=== PATIENT | female | born 1980 | race Caucasian/White ===

== ENCOUNTER → 2018-07-29 13:47 | Outpatient (CLI) | payer OTHER, SELFPAY ==
[2018-07-29 08:13] VITALS: BMI 24.9
[2018-07-31 11:38] LABS: HPV APTIMA, High Risk Negative (Negative)
== END ==
PROVIDERS: Family Provider Internal Medicine; PCP Internal Medicine; Referring Provider Nurse Practitioner Women's Health; Visit Provider Nurse Practitioner Women's Health
DX: Z12.4 Encounter for screening for malignant neoplasm of cervix (principal)
CPT/HCPCS: 87624; 88175; G0145

== ENCOUNTER → 2020-10-07 09:15 | Outpatient (CLI) | payer OTHER, SELFPAY ==
[2020-10-07 08:56] VITALS: BMI 24.9
[2020-10-07 15:06] LABS: NATERA MAILED SPECIMEN
== END ==
PROVIDERS: PCP Internal Medicine; Referring Provider Nurse Practitioner Women's Health; Visit Provider Nurse Practitioner Women's Health
DX: N94.9 Unspecified condition associated with female genital organs and menstrual cycle (principal); Z80.3 Family history of malignant neoplasm of breast
CPT/HCPCS: 36415; 87070; 87205

== ENCOUNTER → 2021-10-10 | Outpatient (CLI) | payer OTHER, SELFPAY ==
--- NOTE | 2021-10-10 08:51 | BI_ITS ---
MAMMOGRAPHY - BILATERAL SCREENING REASON FOR EXAM: Female, 41 years old. Routine annual screening examination. PERTINENT HISTORY: Non-contributory. TECHNIQUE: Digital bilateral breast brittaney (3D mammographic acquisition) in the CC and MLO projections. 2-D mediolateral oblique (MLO) and craniocaudad (CC) views of both breasts were obtained. CAD: Full Field Digital Mammography with Computer Added Detection was performed. COMPARISON: None. Baseline examination. FINDINGS: Breast Composition: The breasts are extremely dense, which lowers the sensitivity of mammography. There are no dominant masses or suspicious calcifications. No other significant abnormalities are identified. BI/SCRN MAMM (CAD)W/BRITTANEY BILAT IMPRESSION: Negative screening mammogram. Yearly followup mammogram recommended. (A) ASSESSMENT CATEGORY: BIRADS Category 1: Negative. A letter regarding these results will be sent to the patient by the facility within 30 days. Approximately 10% of breast cancers are not detected by mammography. A normal mammogram should not delay biopsy of a clinically suspicious abnormality. [id number] Electronically Signed: Nathan Vergara MD at 9:46 EDT ,
== END | disposition home or self-care (01) ==
LOC: OPBI 08:51
PROVIDERS: PCP Internal Medicine; Referring Provider Obstetrics & Gynecology; Visit Provider Obstetrics & Gynecology
DX: Z12.31 Encounter for screening mammogram for malignant neoplasm of breast (principal)
CPT/HCPCS: 77063; 77067

== ENCOUNTER → 2022-10-16 | Outpatient (CLI) | payer OTHER, SELFPAY ==
--- NOTE | 2022-10-16 15:23 | BI_ITS ---
MAMMOGRAPHY - BILATERAL SCREENING REASON FOR EXAM: Female, 42 years old. Routine annual screening examination. PERTINENT HISTORY: Non-contributory. TECHNIQUE: Digital bilateral breast brittaney (3D mammographic acquisition) in the CC and MLO projections. 2-D mediolateral oblique (MLO) and craniocaudad (CC) views of both breasts were obtained. CAD: Full Field Digital Mammography with Computer Added Detection was performed. COMPARISON: Comparison is made with prior study dated October 10, 2021. FINDINGS: Breast Composition: The breasts are extremely dense, which lowers the sensitivity of mammography. There are no dominant masses or suspicious calcifications. No other significant abnormalities are identified. There has been no significant change since the prior study. BI/SCRN MAMM (CAD)W/BRITTANEY BILAT IMPRESSION: Stable bilateral screening mammogram. Yearly follow-up mammogram recommended. (A) ASSESSMENT CATEGORY: BIRADS Category 1: Negative. A letter regarding these results will be sent to the patient by the facility within 30 days. Approximately 10% of breast cancers are not detected by mammography. A normal mammogram should not delay biopsy of a clinically suspicious abnormality. [id number] Electronically Signed: Nathan Vergara MD at 8:16 EDT ,
== END | disposition home or self-care (01) ==
LOC: OPBI 15:22
PROVIDERS: PCP Internal Medicine; Referring Provider Nurse Practitioner Women's Health; Visit Provider Nurse Practitioner Women's Health
DX: Z12.31 Encounter for screening mammogram for malignant neoplasm of breast (principal)
CPT/HCPCS: 77063; 77067

== ENCOUNTER → 2023-09-06 | Outpatient (CLI) | payer OTHER, SELFPAY ==
--- NOTE | 2023-09-06 14:26 | US_ITS ---
STUDY: ULTRASOUND BREAST - LEFT REASON FOR EXAM: Female, 43 years old. Palpable lump in the left axilla. TECHNIQUE: Axial and longitudinal images of the LEFT breast were performed with a high resolution ultrasound transducer. # OF IMAGES: 19 COMPARISON: Comparison is made with prior mammogram dated September 06, 2023. FINDINGS: LEFT Breast: The left axilla was examined with ultrasound. There is a 1.5 cm x 0.9 cm x 0.5 cm hypoechoic nodule with central fatty hilum suggestive of a small lymph node. US/Breast Limited Unilateral IMPRESSION: 1.5 cm x 0.9 cm x 0.5 cm benign-appearing lymph node in the left axilla. ASSESSMENT CATEGORY: BIRADS Category 2: Benign. A letter regarding these results will be sent to the patient by the facility within 30 days. Electronically Signed: Nathan Vergara MD at 13:29 EDT ,
--- NOTE | 2023-09-06 14:26 | BI_ITS ---
MAMMOGRAPHY - BILATERAL DIAGNOSTIC REASON FOR EXAM: Female, 43 years old. Patient felt a tiny left axillary lump. PERTINENT HISTORY: Non-contributory. TECHNIQUE: Digital bilateral breast velia (3D mammographic acquisition) in the CC and MLO projections. 2-D mediolateral oblique (MLO) and craniocaudad (CC) views of both breasts were obtained. CAD: Full Field Digital Mammography with Computer Added Detection was performed. COMPARISON: Comparison is made with prior study dated October 16, 2022 and October 10, 2021. FINDINGS: Breast Composition: The breasts are extremely dense, which lowers the sensitivity of mammography. There are no dominant masses or suspicious calcifications. No other significant abnormalities are identified. There has been no significant change since the prior study. BI/DIAG MAMM W/CAD, BILAT IMPRESSION: Stable bilateral diagnostic mammogram. With the patient''s history of a palpable lump in the left axilla, correlation with ultrasound is recommended. ASSESSMENT CATEGORY: BIRADS Category 0: Incomplete. Need additional imaging evaluation. A letter regarding these results will be sent to the patient by the facility within 30 days. Approximately 10% of breast cancers are not detected by mammography. A normal mammogram should not delay biopsy of a clinically suspicious abnormality. Electronically Signed: Nathan Vergara MD at 8:43 EDT ,
== END | disposition home or self-care (01) ==
PROVIDERS: PCP Internal Medicine; Visit Provider Nurse Practitioner Women's Health
DX: N63.32 Unspecified lump in axillary tail of the left breast (principal); Z80.3 Family history of malignant neoplasm of breast
CPT/HCPCS: 76642; 77062; 77066; G0279

== ENCOUNTER → 2023-11-12 | Outpatient (CLI) | payer OTHER, SELFPAY ==
[2023-11-14 14:10] LABS: HPV APTIMA, High Risk Negative (Negative)
== END | disposition home or self-care (01) ==
LOC: LABSPEC 11:55
PROVIDERS: PCP Internal Medicine; Referring Provider Nurse Practitioner Women's Health; Visit Provider Nurse Practitioner Women's Health
DX: Z12.4 Encounter for screening for malignant neoplasm of cervix (principal)
CPT/HCPCS: 87624; 88175; G0145

== ENCOUNTER → 2024-11-25 | Outpatient (CLI) | payer OTHER, SELFPAY ==
--- NOTE | 2024-11-25 12:45 | BI_ITS ---
EXAM: SCRN MAMM (CAD)W/BRITTANEY BILAT DATE: 11/25/2024 CLINICAL HISTORY: F, Age 44 y/o , SCREENING FOR BREAST CANCER TECHNIQUE: SCRN MAMM (CAD)W/BRITTANEY BILAT COMPARISON: Prior exam(s) were compared FINDINGS: TISSUE DENSITY: The breasts are extremely dense, which lowers the sensitivity of mammography. Bilateral Breast Mammographic Findings: No suspicious masses, calcifications or other abnormalities are identified. BI/SCRN MAMM (CAD)W/BRITTANEY BILAT IMPRESSION: No mammographic evidence of malignancy in either breast OVERALL FINAL ASSESSMENT BI-RADS 1: NEGATIVE. RECOMMENDATION: Routine annual follow-up in 1 Year A letter with findings and recommendations will be mailed to the patient. Reading Location: [id number]
--- OUTSIDE RECORDS SUMMARY | 2024-11-25 20:35 | XMS RPT_ITS | CCD ---
Author Organization [facility] Care Team Providers Care Grain Drier Name Role Phone Juan Elaine MD Unavailable EDGARDO PALACIO Admitting Unavailable EDGARDO PALACIO Attending Unavailable EDGARDO PALACIO Primary Care Unavailable Dr. Yasmin Montenegro Primary Care Provider Dr. Yasmin Montenegro Referring Provider Yonatan TRADITIONAL CHINESE HERBALIST, [place]-Magalie Quigley Attending Provider Yasmin Montenegro MD Primary Care Provider Yasmin Montenegro MD Primary Care Provider Dr. Yasmin Montenegro Primary Care Provider Dr. Yasmin Montenegro Referring Provider Yonatan TRADITIONAL CHINESE HERBALIST, [place]-Magalie Quigley Attending Provider Dr. Yasmin Montenegro Primary Care Provider Dr. Yasmin Montenegro Referring Provider Yonatan TRADITIONAL CHINESE HERBALIST, [place]-Magalie Quigley Attending Provider Yasmin Montenegro MD Primary Care Provider Stauffer DIRECTOR MARKETING.TRAINING SYSTEMS OFFICER, Latonia Unavailable Teddy DIRECTOR MARKETING.PANEL EDGE SEALER, Daniella Unavailable Teddy DIRECTOR MARKETING.PANEL EDGE SEALER, Daniella Unavailable Stauffer DIRECTOR MARKETING.TRAINING SYSTEMS OFFICER, Latonia Unavailable YASMIN MONTENEGRO Primary Care Unavailable LATONIA STAUFFER Attending Unavailable YASMIN MONTENEGRO Primary Care Unavailable ROX ROSENBERG Referring Unavailable YASMIN MONTENEGRO Primary Care Unavailable YASMIN MONTENEGRO Primary Care Unavailable YASMIN MONTENEGRO Attending Unavailable YASMIN MONTENEGRO Primary Care Unavailable YASMIN MONTENEGRO Primary Care Unavailable LATONIA STAUFFER Referring Unavailable Yonatan TRADITIONAL CHINESE HERBALIST, Soraida Attending Unavailable Yasmin Montenegro Referring Unavailable Yasmin Montenegro Primary Care Unavailable Yonatan TRADITIONAL CHINESE HERBALIST, Soraida Attending Unavailable Yasmin Montenegro Primary Care Unavailable Moni WILLIAMSON, Dr. Yasmin Wilson Primary Care Provider Yonatan TRADITIONAL CHINESE HERBALIST-C, Soraida Attending Provider [phone] Yonatan TRADITIONAL CHINESE HERBALIST-C, Soraida Referring Provider Dr. Yasmin Montenegro MD Referring Provider Medications Current Medications Medication Drug Class(es) Dates Sig (Normalized) Sig (Original) cholecalciferol 0.05 mg oral capsule (1 source) Vitamin D Start: 11-25-2024 take 1 capsule by mouth once daily Cholecalciferol (Vitamin D3) 50 mcg (2,000 unit) capsule Active 50 ug PO daily November 25, 2024 12:00am doxycycline hyclate 100 mg oral tablet (2 sources) Tetracycline-cl ass Drug Start: 02-20-2024 End: 02-25-2024 take 1 tablet by mouth twice daily doxycycline (VIBRA-TABS) 100 mg tablet Take 1 tablet by mouth two times a day for 5 days. 10 tablet 02/20/2024 02/25/2024 Active Magnesium (1 source) Start: 11-25-2024 take 1 tablet by mouth once daily Magnesium 250 mg tablet Active 250 mg PO daily November 25, 2024 12:00am Completed/Discontinued Medications Medication Drug Class(es) Dates Sig (Normalized) Sig (Original) acetaminophen 325 mg / HYDROcodone bitartrate 5 mg oral tablet (4 sources) Opioid Agonist Start: 10-30-2016 End: 07-29-2018 Hydrocodone-Acetami nophen 1 TABLET tablet Discontinued 1 {tbl} PO EVERY 6 HOURS NEEDED as needed for Pain 15 0 October 30, 2016 12:00am July 29, 2018 8:09am Start: 10-30-2016 End: 07-29-2018 take 1 tablet by mouth every six hours as needed Hydrocodone-Acetaminophen Discontinued 1 TABLET PO EVERY 6 HOURS NEEDED October 30, 2016 12:00am July 29, 2018 8:09am Norgestimate-Ethinyl Estradiol (20 sources) Progestin, Estrogen Start: 09-16-2019 End: 10-07-2020 Norgestimate-Ethinyl Estradiol (Sprintec (28)) 0.25-35 mg-mcg tablet Discontinued 1 {tbl} PO daily 84 3 September 16, 2019 2:46pm October 07, 2020 8:53am Start: 09-16-2019 End: 10-07-2020 take 1 tablet by mouth once daily Norgestimate-Ethinyl Estradiol (Sprintec (28)) 0.25-35 mg-mcg tablet Discontinued 1 TABLET PO daily 84 September 16, 2019 2:46pm October 07, 2020 8:53am Start: 07-27-2019 End: 09-16-2019 Norgestimate-Ethinyl Estradi ol (Sprintec (28)) 0.25-35 mg-mcg tablet Discontinued 1 {tbl} PO daily 84 1 July 27, 2019 3:42pm September 16, 2019 2:46pm Start: 07-27-2019 End: 09-16-2019 take 1 tablet by mouth once daily Norgestimate-Ethinyl Estradiol (Sprintec (28)) 0.25-35 mg-mcg tablet Discontinued 1 TABLET PO daily 84 July 27, 2019 3:42pm September 16, 2019 2:46pm Start: 07-29-2018 End: 07-27-2019 take 1 tablet by mouth once daily Norgestimate-Ethinyl Estradiol (Sprintec (28)) 0.25-35 mg-mcg tablet Discontinued 1 TABLET PO daily July 29, 2018 8:26am July 27, 2019 3:42pm Start: 07-29-2018 End: 07-27-2019 take 1 tablet by mouth once daily Norgestimate-Ethinyl Estradiol (Sprintec (28)) 0.25-35 mg-mcg tablet Discontinued 1 TABLET PO daily 84 July 29, 2018 8:24am July 27, 2019 3:42pm Start: 07-29-2018 End: 07-27-2019 Norgestimate-Ethinyl Estradi ol (Sprintec (28)) 0.25-35 mg-mcg tablet Discontinued 1 {tbl} PO daily 84 4 July 29, 2018 12:00am July 27, 2019 3:42pm Start: 07-29-2018 End: 07-27-2019 Norgestimate-Ethinyl Estradi ol (Sprintec (28)) 0.25-35 mg-mcg tablet Discontinued 1 {tbl} PO daily 28 July 29, 2018 12:00am July 27, 2019 3:42pm Start: 07-29-2018 End: 07-27-2019 take 1 tablet by mouth once daily Norgestimate-Ethinyl Estradiol (Sprintec (28)) 0.25-35 mg-mcg tablet Discontinued 1 TABLET PO daily July 29, 2018 12:00am July 27, 2019 3:42pm Start: 07-29-2018 End: 07-27-2019 take 1 tablet by mouth once daily Norgestimate-Ethinyl Estradiol (Sprintec (28)) 0.25-35 mg-mcg tablet Discontinued 1 TABLET PO daily July 29, 2018 12:00am July 27, 2019 3:42pm Start: 06-04-2018 End: 07-29-2018 Norgestimate-Ethinyl Estradi ol 0.25-35 mg-mcg tablet Discontinued 1 {tbl} PO DAILY 84 0 June 04, 2018 3:47pm July 29, 2018 8:24am Start: 06-04-2018 End: 07-29-2018 take 1 tablet by mouth once daily Norgestimate-Ethinyl Estradiol Discontinued 1 TABLET PO DAILY June 04, 2018 3:47pm July 29, 2018 8:24am Start: 06-04-2018 End: 05-15-2023 take 1 tablet by mouth once daily norgestimate 0.25 mg-ethinyl estradiol 35 mcg (SPRINTEC) 0.25-35 mg-mcg per tablet Take 1 tablet by mouth once daily. 1 Package 06/04/2018 05/15/2023 Discontinued Start: 06-04-2018 take 1 tablet by carmen th once daily norgestimate 0.25 mg-ethinyl estradiol 35 mcg (SPRINTEC) 0.25-35 mg-mcg per tablet Take 1 tablet by mouth once daily. 1 Package 0 06/04/2018 Active Start: 12-19-2016 take 1 tablet by carmen th once daily SPRINTEC 28 0.25-35 MG-MCG TABS One tablet by mouth daily NORGESTIMATE-ETH ESTRADIOL [id number] Juan Elaine MD Start: 10-26-2016 End: 06-04-2018 Norgestimate-Ethinyl Estradi ol Discontinued 1 EACH PO DAILY October 26, 2016 8:11am June 04, 2018 3:49pm Start: 10-26-2016 End: 06-04-2018 Norgestimate-Ethinyl Estradi ol 1 EACH tablet Discontinued 1 NMA PO DAILY October 26, 2016 12:00am June 04, 2018 3:49pm Start: 10-26-2016 End: 06-04-2018 Norgestimate-Ethinyl Estradi ol Discontinued 1 EACH PO DAILY October 26, 2016 12:00am June 04, 2018 3:49pm Comment on above: Take 1 tablet by carmen th once daily. hydrocortisone 25 mg/ml topical cream (8 sources) Corticosteroid Start: 10-30-2016 End: 07-29-2018 Hydrocortisone 30 GM cream with perineal applicator Discontinued 30 g RC Q4H 1 0 October 30, 2016 12:00am July 29, 2018 8:09am Start: 09-08-2014 End: 05-15-2023 hydrocortisone (ANUSOL-HC) 2 5 mg suppository Indications: External hemorrhoids without mention of complication 1 Suppository by RECTAL route twice daily as needed (hemorrhoids/rectal pain). 24 Suppository 2 09/08/2014 05/15/2023 Discontinued Comment on above: 1 Suppository by REC DONNIE route twice daily as needed (hemorrhoids/rectal pain). metroNIDAZOLE 500 mg oral tablet (4 sources) Nitroimidazole Antimicrobial Start: 017 End: 019 take 1 tablet by mouth three times daily Metronidazole 500 MG tablet Discontinued 500 mg PO THREE TIMES A DAY 9 0 October 30, 2016 12:00am July 29, 2018 8:09am NORGESTIMATE-ETH ESTRADIOL (4 sources) Start: 017 take 1 tablet by mouth once daily SPRINTEC 28 0.25-35 MG-MCG TABS One tablet by mouth daily NORGESTIMATE-ETH ESTRADIOL [id number] Juan Elaine MD Start: 12-19-2016 take 1 tablet by carmen th once daily SPRINTEC 28 0.25-35 MG-MCG TABS One tablet by mouth daily NORGESTIMATE-ETH ESTRADIOL [id number] Juan Elaine MD psyllium 3400 mg powder for oral suspension (10 sources) Start: 10-10-2021 End: 11-25-2024 Psyllium Husk (Metamucil) 3. 4 gram/5.4 gram powder Discontinued 1 tbsp PO DAILY October 10, 2021 12:00am November 25, 2024 1:07pm mix into at least 8 oz of water or juice before administering Start: 10-10-2021 Psyllium Husk (Metamucil) 3.4 gram/5.4 gram powder Active 1 tbsp PO DAILY October 10, 2021 12:00am mix into at least 8 oz of water or juice before administering Comment on above: Take 1 Dose by mouth once daily. Problems Active Problems Problem Classification Problem Date Documented Da te Episodic/Chronic Headache; including migraine (2 sources) Episodic paroxysmal hemicrania; Translations: [Episodic paroxysmal hemicrania, not intractable] Onset: 05-20-2024 05-20-2024 Chronic Immunizations and screening for infectious disease (4 sources) Encounter for observation for suspected exposure to other biological agents ruled out; Translations: [Patient encounter status] Onset: 11-18-2019 Episodic Nonmalignant breast conditions (3 sources) Lump of axillary tail of breast; Translations: [Unspecified lump in axillary tail of the left breast] 09-05-2023 Episodic Other connective tissue disease (1 source) Pain of toe of left foot; Translations: [Pain in left toe(s)] Episodic Other injuries and conditions due to external causes (1 source) H/O: injury; Translations: [Personal history of other (healed) physical injury and trauma] 05-20-2024 Episodic Other lower respiratory disease (2 sources) Cough; Translations: [Acute cough] 02-20-2024 Episodic Other screening for suspected conditions (not mental disorders or infectious disease) (6 sources) Patient encounter status; Translations: [Encounter for screening for lipoid disorders] Onset: 11-21-2024 Episodic Other skin disorders (1 source) Disorder of skin of upper limb; Translations: [Disorder of the skin and subcutaneous tissue, unspecified] 05-20-2024 Episodic Other upper respiratory infections (1 source) Acute pharyngitis, unspecified; Translations: [Acute pharyngitis, unspecified] Onset: 11-18-2019 Episodic Residual codes; unclassified (4 sources) Family history of breast cancer; Translations: [Family history of malignant neoplasm of breast] 10-18-2020 Episodic Comment on above: paternal 1st cousin breast Ca Residual codes; unclassified (1 source) Family history of malignant neoplasm of breast; Translations: [Family history of malignant neoplasm of breast] 09-05-2023 Episodic Spondylosis; intervertebral disc disorders; other back problems (1 source) Acute low back pain; Translations: [Acute midline low back pain without sciatica] 05-31-2021 Episodic Past or Other Problems Problem Classification Problem Date Documented Da te Episodic/Chronic Anal and rectal conditions (20 sources) Anorectal fistula; Translations: [Anal fistula] Onset: 08-22-2011 Resolved: 11-27-2011 12-19-2016 Episodic Cancer of cervix (2 sources) Atypical squamous cells of undetermined significance on cervical Papanicolaou smear; Translations: [Atypical squamous cells of undetermined significance on cytologic smear of cervix (ASC-US)] Onset: 05-20-2024 05-20-2024 Episodic Contraceptive and procreative management (10 sources) Oral contraception; Translations: [Encounter for surveillance of contraceptive pills] Onset: 11-27-2011 Resolved: 12-09-2012 12-09-2012 Episodic Gastrointestinal hemorrhage (20 sources) Rectal hemorrhage; Translations: [Hemorrhage of anus and rectum] Onset: 08-22-2011 Resolved: 10-23-2014 11-27-2011 Episodic Hemorrhage during ; abruptio placenta; placenta previa (10 sources) Threatened miscarriage; Translations: [Threatened ] Onset: 02-24-2010 Resolved: 11-24-2010 11-24-2010 Episodic Hemorrhoids (13 sources) Ulcerated hemorrhoids; Translations: [Residual hemorrhoidal skin tags] Onset: 10-17-2016 10-17-2016 Episodic Other female genital disorders (10 sources) Disorder of female genital organs; Translations: [Unspecified condition associated with female genital organs and menstrual cycle] Onset: 12-22-2009 Resolved: 11-27-2011 11-27-2011 Episodic Other injuries and conditions due to external causes (1 source) Personal history of other (healed) physical injury and trauma; Translations: [History of back strain] Onset: 05-20-2024 Episodic Other and delivery including normal (10 sources) Normal in primigravida; Translations: [Encounter for supervision of normal first , unspecified trimester] Onset: 12-17-2007 Resolved: 12-09-2009 12-09-2009 Episodic Other skin disorders (1 source) Disorder of the skin and subcutaneous tissue, unspecified; Translations: [Skin lesion of right upper extremity] Onset: 05-20-2024 Episodic Pneumonia (except that caused by tuberculosis or sexually transmitted disease) (4 sources) Community acquired pneumonia; Translations: [Pneumonia, unspecified organism] Onset: 02-28-2024 02-20-2024 Episodic Screening and history of mental health and substance abuse codes (2 sources) Encounter for screening for depression; Translations: [Encounter for screening examination for other mental health and behavioral disorders] Onset: 05-20-2024 Episodic Spontaneous (10 sources) Incomplete miscarriage; Translations: [Incomplete spontaneous without complication] Onset: 12-09-2009 Resolved: 05-24-2010 05-24-2010 Episodic Unclassified (1 source) Patient encounter status 10-07-2024 Results Test Name Value Interpretation Reference Range Facility [facility] 05-20-2024 CNOV Office Visit (INTMWS ) MELONIE ROSE ([id number]) 1980 F Date Time Provider Department 05/20/24 5:00 PM YASMIN MONTENEGRO INTMWS During your visit today, we recorded the following information about you: Temperature Pulse Respiration Blood pressure 96.5 degrees 69/minute 18/minute 116/70 Weight Height Last Period 71.8 kg 1.71 m 05/03/23 Yasmin Montenegro MD 05/20/2024 5:59 PM Signed This note was created using [employer]. Subjective Melonie Rose is a 43 year old female. HISTORY Melonie Rose is a 43 year old lady here for yearly exam and follow up appointment. Melonie Rose is a 43-year-old female presenting for a yearly checkup, with additional concerns about a recent Pap smear result, a persistent skin lesion, episodic headaches, and recurrent lower back pain. Melonie recently underwent a Pap smear at her OBGYN appointment in [place], which revealed atypical squamous cells of undetermined significance (ASCUS). She expresses anxiety about the result, particularly the recommendation to wait three years for a follow-up. She has a family history of cancer, with her grandmother having from an unspecified female cancer. She also reports a small lesion on her right forearm that appeared in the summer and has remained unchanged in size. She initially thought it was a bug bite but now seeks further evaluation. Additionally, she describes experiencing two episodes of headaches, one last winter and one this fall, characterized by quick pulses of pain in the hoahaoism area, lasting from Sunday to Sunday. She notes that the headaches seem to start at the end of a school day and wonders if they might be related to stress or fatigue. Lastly, she mentions recurrent lower back pain, which she attributes to sitting in a comfy chair for too long. She recalls a previous episode of back pain in 2021, for which she sought medical attention due to concerns about myeloma, a condition that a friend's had from. She describes the pain as feeling stuck and wonders if it is related to poor posture. Melonie has a history of anxiety and has previously undergone counseling. She is not currently on medication for anxiety but is open to returning to counseling if needed. She also mentions a previous episode of pneumonia this fall, which she describes as so bad. PAST MEDICAL HISTORY Diagnosis Date Anal fistula Anxiety Internal and external ulcerated hemorrhoids 10/17/2016 No current outpatient medications on file. No current facility-administered medications for this visit. ALLERGIES No Known Allergies FAMILY HISTORY Problem Relation Age of Onset Heart Mother racing heart requiring Diabetes Father Cancer Father 60 colon cancer, post liver transplant other (liver transplant) Father disease(PSC) has returned other (Colitis) Father ileostomy No Known Problems Brother No Known Problems Brother Heart Maternal Grandmother Cancer Maternal Grandmother uterine Alzheimer's Disease Maternal Grandfather Cancer Paternal Grandmother brain Social History Tobacco Use Smoking status: Never Smokeless tobacco: Never Substance Use Topics Alcohol use: No Drug use: No Review of Systems Objective BP 116/70 Pulse 69 Temp (!) 35.8 ?C (96.5 ?F) Resp 18 Ht 171 cm (5' 7.32) Wt 71.8 kg (158 lb 4.6 oz) LMP 05/03/2023 (Exact Date) SpO2 100% BMI 24.55 kg/m? Physical Exam Vitals reviewed. Constitutional: Appearance: Normal appearance. She is well-developed. HENT: Head: Normocephalic and atraumatic. Right Ear: Tympanic membrane, ear canal and external ear normal. Left Ear: Tympanic membrane, ear canal and external ear normal. Nose: Nose normal. Eyes: Conjunctiva/sclera: Conjunctivae normal. Neck: Thyroid: No thyromegaly. Vascular: No carotid bruit. Cardiovascular: Rate and Rhythm: Normal rate and regular rhythm. Pulses: Normal pulses. Heart sounds: Normal heart sounds. No murmur heard. No friction rub. No gallop. Pulmonary: Effort: Pulmonary effort is normal. Breath sounds: Normal breath sounds. Abdominal: General: Bowel sounds are normal. There is no distension. Palpations: Abdomen is soft. There is no mass. Tenderness: There is no abdominal tenderness. Musculoskeletal: General: No deformity. Normal range of motion. Back: Right lower leg: No edema. Left lower leg: No edema. Lymphadenopathy: Cervical: No cervical adenopathy. Skin: General: Skin is warm and dry. Coloration: Skin is not jaundiced or pale. Findings: No rash. Neurological: General: No focal deficit present. Mental Status: She is alert and oriented to person, place, and time. Cranial Nerves: No cranial nerve deficit. Sensory: No sensory deficit. Motor: No abnormal muscle tone. Coordination: Coordination normal. Deep Tendon Reflexes: R (more content not included)... Normal [facility] CNOVon 02-28-2024 CNOV Office Visit (INTMWS ) MELONIE ROSE ([id number]) 1980 F Date Time Provider Department 02/28/24 7:00 AM LATONIA STAUFFER During your visit today, we recorded the following information about you: Pulse Respiration Blood pressure Weight 70/minute 16/minute 114/75 69.4 kg Latonia Stauffer APRN.TRAINING SYSTEMS OFFICER 02/28/2024 7:27 AM Signed SUBJECTIVE: Depression Screening Never done Anxiety Screening Never done Influenza Vaccine(1) due on 01/06/2024 Covid-19 Vaccine( season) due on 01/06/2024 HPI Melonie Rose is a 43 year old female. PMH significant for ACTIVE PROBLEM LIST Internal and External Ulcerated Hemorrhoids Anal Fistula She was seen in [facility] February 20, 2024 for acute cough body aches chills and fevers. Right upper lobe pneumonia found on CXR. Started on doxycycline.Advised to follow up with primary care. Today reports she has completed 5 days of doxycycline. Last fever was on Sunday, 3 days ago. She notes intermittent cough occasionally productive. No reported wheezing. Some shortness of breath on exertion. Has felt well enough to work. Review of Systems Constitutional: Negative. Respiratory: Positive for cough (intermittent) and shortness of breath (mild SOBOE). Objective BP 114/75 Pulse 70 Resp 16 Wt 69.4 kg (153 lb) LMP 05/12/2023 SpO2 98% BMI 24.01 kg/m? Physical Exam Vitals and nursing note reviewed. Constitutional: Appearance: Normal appearance. HENT: Head: Normocephalic and atraumatic. Eyes: Conjunctiva/sclera: Conjunctivae normal. Cardiovascular: Rate and Rhythm: Normal rate and regular rhythm. Pulmonary: Effort: Pulmonary effort is normal. Breath sounds: Normal breath sounds. Skin: General: Skin is warm and dry. Neurological: Mental Status: She is alert. ALLERGIES No Known Allergies No prescriptions on file. PAST MEDICAL HISTORY Diagnosis Date Anal fistula Anxiety Internal and external ulcerated hemorrhoids 10/17/2016 Social History Tobacco Use Smoking status: Never Smokeless tobacco: Never Substance Use Topics Alcohol use: No Drug use: No ASSESSMENT/PLAN: 1. Pneumonia of right upper lobe due to infectious organism - ICD9: 486, ICD10: J18.9 Feeling much improved. Afebrile x 3 days. Still has a cough. Some shortness of breath on exertion. Recommend deep breathing 10 times every hour while awake. Walking short distances resting to build up her endurance. Chest x-ray today to monitor for resolution. She should continue to feel improved back to baseline. She will let us know if not continuing to improve. - XR CHEST 2V FRONTAL/LAT Latonia Stauffer APRN.TRAINING SYSTEMS OFFICER Medical Decision Making: Problems: Low: Acute, uncomplicated illness or injury Data: Unique test(s) ordered: 1 Risk: Low: Low risk from testing/treatment Medical Decision Making Level: 3 - Low Allergies As of Date: 02/28/2024 (No Known Allergies) Date Reviewed: 02/28/2024 Reviewed by: Latonia Stauffer APRN.TRAINING SYSTEMS OFFICER - Fully Assessed Reason for Visit: Follow Up [171] Primary Visit Diagnosis:Pneumonia of right upper lobe due to infectious organism [J18.9] Order(s):XR CHEST 2V FRONTAL/LAT [[id number]] Order #: [id number] FUTURE Meds Comments as of 11/24/2010: Problem List As Of Date 02/28/2024 Noted Resolved Supervision of Normal First [Z34.00] 12/17/2007 12/09/2009 Incomplete spontaneous without mention*12/09/2009 05/24/2010 Unspecified disorder of female genital organs [*12/22/2009 11/27/2011 Threatened , antepartum [O20.0] 02/24/2010 11/24/2010 Previous delivery, antepartum conditio*04/20/2010 11/24/2010 Anal or rectal pain [K62.89] 08/22/2011 11/27/2011 Rectal bleeding [K62.5] 08/22/2011 11/27/2011 Surveillance of previously prescribed contracep*11/27/2011 12/09/2012 BRBPR (bright red blood per rectum) [K62.5] 07/14/2013 10/23/2014 Internal and external ulcerated hemorrhoids [K6*10/17/2016 Anal fistula [K60.30] 11/20/2016 Medications Discontinued During This Encounter Prescriptions - psyllium husk (METAMUCIL) 3.4 gram/5.4 gram powd (Discontinued) Reported on 02/20/2024 Level of Service: OFFICE/OUTPATIENT ESTABLISHED LOW [facility] 20 MIN [[id number]] Additional E/M codes: VISIT CPLX INHERENT EANDM ASSOC WITH MED * Encounter Status:Closed by LATONIA STAUFFER on 02/28/24 Normal [facility] XR CHEST 2V FRONTAL/LATon XR CHEST 2V FRONTAL/LAT * * *Final Report* * * DATE OF EXAM: Feb 28 2024 8:10AM WOX [id number] - XR CHEST 2V FRONTAL/LAT / PROCEDURE REASON: Pneumonia of right upper lobe due to infectious organism * * * * Physician Interpretation * * * * EXAMINATION: CHEST RADIOGRAPH (2 VIEW FRONTAL and LATERAL) CLINICAL HISTORY: Pneumonia of right upper lobe due to infectious organism MQ: [id number] EXAM DATE/TIME: 02/28/2024 8:10 AM COMPARISON: Chest x-ray on 02/20/2024 RESULT: Lines, tubes, and devices: None. Lungs and pleura: Interval near total resolution of patchy consolidative opacity in the right upper lung. The left lung is clear. No mass lesion identified. No pleural effusions or pneumothorax. Cardiomediastinal silhouette: Stable cardiomediastinal silhouette. Bones and soft tissues: Unremarkable. IMPRESSION: Interval near total resolution of patchy consolidative opacities in the right upper lung. Lumber Carrier: ELENI Transcribe Date/Time: Feb 28 2024 8:18A Dictated by : GASPER BAIRES MD This examination was interpreted and the report reviewed and electronically signed by: GASPER BAIRES MD on Feb 28 2024 8:19AM EST [id number] Normal [facility] XR Chest PA and Lateralon IMPRESSION: Interval near total resolution of patchy consolidative opacities in the right upper lung. Lumber Carrier: ELENI Transcribe Date/Time: Feb 28 2024 8:18A Dictated by : GASPER BAIRES MD This examination was interpreted and the report reviewed and electronically signed by: GASPER BAIRES MD on Feb 28 2024 8:19AM EST DIVISION OF RADIOLOGY * * *Final Report* * * DATE OF EXAM: Feb 28 2024 8:10AM WOX 5291 - XR CHEST 2V FRONTAL/LAT / PROCEDURE REASON: Pneumonia of right upper lobe due to infectious organism * * * * Physician Interpretation * * * * EXAMINATION: CHEST RADIOGRAPH (2 VIEW FRONTAL & LATERAL) CLINICAL HISTORY: Pneumonia of right upper lobe due to infectious organism MQ: XC2_6 EXAM DATE/TIME: 02/28/2024 8:10 AM COMPARISON: Chest x-ray on 02/20/2024 RESULT: Lines, tubes, and devices: None. Lungs and pleura: Interval near total resolution of patchy consolidative opacity in the right upper lung. The left lung is clear. No mass lesion identified. No pleural effusions or pneumothorax. Cardiomediastinal silhouette: Stable cardiomediastinal silhouette. Bones and soft tissues: Unremarkable. DIVISION OF RADIOLOGY Provider, [facility] - 02/28/2024 * * *Final Report* * * DATE OF EXAM: Feb 28 2024 8:10AM WOX 5291 - XR CHEST 2V FRONTAL/LAT / PROCEDURE REASON: Pneumonia of right upper lobe due to infectious organism * * * * Physician Interpretation * * * * EXAMINATION: CHEST RADIOGRAPH (2 VIEW FRONTAL & LATERAL) CLINICAL HISTORY: Pneumonia of right upper lobe due to infectious organism MQ: XC2_6 EXAM DATE/TIME: 02/28/2024 8:10 AM COMPARISON: Chest x-ray on 02/20/2024 RESULT: Lines, tubes, and devices: None. Lungs and pleura: Interval near total resolution of patchy consolidative opacity in the right upper lung. The left lung is clear. No mass lesion identified. No pleural effusions or pneumothorax. Cardiomediastinal silhouette: Stable cardiomediastinal silhouette. Bones and soft tissues: Unremarkable. IMPRESSION IMPRESSION: Interval near total resolution of patchy consolidative opacities in the right upper lung. Lumber Carrier: PSCB Transcribe Date/Time: Feb 28 2024 8:18A Dictated by : GASPER BAIRES MD This examination was interpreted and the report reviewed and electronically signed by: GASPER BAIRES MD on Feb 28 2024 8:19AM EST [facility] Radiology Study observation (narrative) [facility] XR Chest PA and LateralOrder ed By: Ccf Provider on 02-28-2024 [facility] CNOVon 02-20-2024 CNOV Office Visit (UCWSTR ) MELONIE ROSE ([id number]) 1980 F Date Time Provider Department 02/20/24 8:00 AM ROX ROSENBERG [facility] During your visit today, we recorded the following information about you: Temperature Pulse Respiration Blood pressure 101 degrees 106/minute 20/minute 122/82 Weight 69.9 kg Rox Rosenberg APRN.PANEL EDGE SEALER 02/20/2024 9:04 AM Signed Subjective HPI Nontoxic-appearing female presents urgent care chief complaint cough body aches chills fever. Duration of symptoms 2 days. Associated symptoms listed above. OTC medication use none. 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 Past medical history prescription medications allergies reviewed. Denies chance of . .Patient presents with: Cough: Fever, chills, body aches, chest congestion x 2 days PAST MEDICAL HISTORY Diagnosis Date Anal fistula Anxiety Internal and external ulcerated hemorrhoids 10/17/2016 PAST SURGICAL HISTORY Procedure Laterality Date DELIVERY AND CARE ONL 10/13/10 DELIVERY+ CARE 2008 SIGMOIDOSCOPY FLX DX W/COLLJ SPEC BR/WA IF PFRMD 10/23/2013 Sigmoidoscopy, flexible SURG TX ANAL FISTULA SUBQ 10/30/2016 ALLERGIES Patient has no known allergies. MEDICATIONS psyllium husk (METAMUCIL) 3.4 gram/5.4 gram powd Take 1 Dose by mouth once daily. (Patient not taking: Reported on 02/20/2024) FAMILY HISTORY Problem Relation Age of Onset Heart Mother racing heart requiring Diabetes Father Cancer Father 60 colon cancer, post liver transplant other (liver transplant) Father disease(PSC) has returned other (Colitis) Father ileostomy No Known Problems Brother No Known Problems Brother Heart Maternal Grandmother Cancer Maternal Grandmother uterine Alzheimer's Disease Maternal Grandfather Cancer Paternal Grandmother brain Social History Tobacco Use Smoking status: Never Smokeless tobacco: Never Substance Use Topics Alcohol use: No Drug use: No BP 122/82 Pulse 106 Temp (!) 38.3 ?C (101 ?F) Resp 20 Wt 69.9 kg (154 lb 1.6 oz) LMP 05/12/2023 SpO2 98% BMI 24.19 kg/m? Hr 92 Review of Systems Constitutional: Positive for chills, fever and malaise/fatigue. HENT: Negative for congestion, ear discharge, ear pain, sinus pain and sore throat. Eyes: Negative for blurred vision, pain, discharge and redness. Respiratory: Positive for cough and sputum production. Negative for hemoptysis, shortness of breath, wheezing and stridor. Cardiovascular: Negative for chest pain. Gastrointestinal: Negative for abdominal pain, diarrhea, nausea and vomiting. Musculoskeletal: Positive for myalgias. Skin: Negative for itching and rash. Neurological: Negative for dizziness and headaches. Objective Physical Exam Constitutional: General: She is not in acute distress. Appearance: She is not diaphoretic. HENT: Head: Normocephalic. Jaw: No trismus, tenderness, swelling or pain on movement. Nose: Congestion present. Mouth/Throat: Mouth: Mucous membranes are moist. Pharynx: Oropharynx is clear. Uvula midline. No pharyngeal swelling, oropharyngeal exudate, posterior oropharyngeal erythema or uvula swelling. Eyes: Conjunctiva/sclera: Conjunctivae normal. Pupils: Pupils are equal, round, and reactive to light. Cardiovascular: Rate and Rhythm: Normal rate and regular rhythm. Heart sounds: Normal heart sounds. Pulmonary: Effort: Pulmonary effort is normal. No tachypnea, accessory muscle usage or respiratory distress. Breath sounds: No stridor. Wheezing present. No rhonchi or rales. Abdominal: General: There is no distension. Palpations: Abdomen is soft. Tenderness: There is no abdominal tenderness. There is no guarding or rebound. Musculoskeletal: Cervical back: Normal range of motion and neck supple. No edema, erythema, rigidity or tenderness. No pain with movement. Normal range of motion. Lymphadenopathy: Cervical: No cervical adenopathy. Skin: General: Skin is warm and dry. Neurological: Mental Status: She is alert and oriented to person, place, and time. ASSESSMENT/PLAN: 1. Acute cough - ICD9: 786.2, ICD10: R05.1 (primary diagnosis) - XR CHEST 2V FRONTAL/LAT 2. Community acquired pneumonia of right lung, unspecified part of lung - ICD9: 486, ICD10: J18.9 Diagnosed with right upper lobe pneumonia. Placed on doxycycline. Patient was educated on supportive therapies. Patient will follow up with primary care provider as needed. Patient was instructed to immediately proceed to emergency room for any new, worsening, or symptoms lasting longer than anticipated. The patient's clinical presentation is otherwise unremarkable at this time. Based on exam and clinical finding, the patient is stable for discharge. Plan of care was discussed with patient. Patient verbal (more content not included)... Normal [facility] Manuel 02-20-2024 DEMETRIA Telephone (UCWSTR) MELONIE ROSE ([id number]) 1980 F Date Time Provider Department 02/20/24 ROX ROSENBERG [facility] During your visit today, we recorded the following information about you: Rox Rosenberg APRN.CNP 02/20/2024 9:05 AM Signed Please inform patient that x-ray indicated right upper lobe pneumonia. Placed on doxycycline. JENNIFER Diego Sherrie 02/20/2024 9:15 AM Signed Patient returned call and given the message below with no further questions. Allergies As of Date: 02/20/2024 (No Known Allergies) Date Reviewed: 02/20/2024 Reviewed by: Rox Rosenberg APRN.CNP - Fully Assessed Reason for Visit: Results [95] Prescriptions as of 02/20/2024 - doxycycline (VIBRA-TABS) 100 mg tablet Take 1 tablet by mouth two times a day for 5 days. - psyllium husk (METAMUCIL) 3.4 gram/5.4 gram powd Take 1 Dose by mouth once daily. Meds Comments as of 11/24/2010: Problem List As Of Date 02/20/2024 Noted Resolved Supervision of Normal First [Z34.00] 12/17/2007 12/09/2009 Incomplete spontaneous without mention*12/09/2009 05/24/2010 Unspecified disorder of female genital organs [*12/22/2009 11/27/2011 Threatened , antepartum [O20.0] 02/24/2010 11/24/2010 Previous delivery, antepartum conditio*04/20/2010 11/24/2010 Anal or rectal pain [K62.89] 08/22/2011 11/27/2011 Rectal bleeding [K62.5] 08/22/2011 11/27/2011 Surveillance of previously prescribed contracep*11/27/2011 12/09/2012 BRBPR (bright red blood per rectum) [K62.5] 07/14/2013 10/23/2014 Internal and external ulcerated hemorrhoids [K6*10/17/2016 Anal fistula [K60.30] 11/20/2016 Encounter Status:Closed by MIKEL NUNEZ on 02/20/24 Normal [facility] XR CHEST 2V FRONTAL/LATon XR CHEST 2V FRONTAL/LAT * * *Final Report* * * DATE OF EXAM: Feb 20 2024 8:55AM WOX 5291 - XR CHEST 2V FRONTAL/LAT / PROCEDURE REASON: Acute cough * * * * Physician Interpretation * * * * EXAMINATION: CHEST RADIOGRAPH (2 VIEW FRONTAL and LATERAL) CLINICAL HISTORY: Acute cough MQ: XC2_6 EXAM DATE/TIME: 02/20/2024 8:55 AM COMPARISON: Radiograph dated 08/19/2007 RESULT: Lines, tubes, and devices: None. Lungs and pleura: Focal right upper lobe airspace consolidation. No pleural effusion or pneumothorax. Cardiomediastinal silhouette: Normal cardiomediastinal silhouette. Bones and soft tissues: Unremarkable. IMPRESSION: Right upper lobe pneumonia. Lumber Carrier: ELENI Transcribe Date/Time: Feb 20 2024 8:58A Dictated by : MARY JANE GLASGOW MD This examination was interpreted and the report reviewed and electronically signed by: MARY JANE GLASGOW MD on Feb 20 2024 8:59AM EST [id number] Normal [facility] XR Chest PA and Lateralon IMPRESSION: Right upper lobe pneumonia. Lumber Carrier: ELENI Transcribe Date/Time: Feb 20 2024 8:58A Dictated by : MARY JANE GLASGOW MD This examination was interpreted and the report reviewed and electronically signed by: MARY JANE GLASGOW MD on Feb 20 2024 8:59AM EST DIVISION OF RADIOLOGY * * *Final Report* * * DATE OF EXAM: Feb 20 2024 8:55AM WOX 5291 - XR CHEST 2V FRONTAL/LAT / PROCEDURE REASON: Acute cough * * * * Physician Interpretation * * * * EXAMINATION: CHEST RADIOGRAPH (2 VIEW FRONTAL & LATERAL) CLINICAL HISTORY: Acute cough MQ: XC2_6 EXAM DATE/TIME: 02/20/2024 8:55 AM COMPARISON: Radiograph dated 08/19/2007 RESULT: Lines, tubes, and devices: None. Lungs and pleura: Focal right upper lobe airspace consolidation. No pleural effusion or pneumothorax. Cardiomediastinal silhouette: Normal cardiomediastinal silhouette. Bones and soft tissues: Unremarkable. DIVISION OF RADIOLOGY Provider, [facility] - 02/20/2024 * * *Final Report* * * DATE OF EXAM: Feb 20 2024 8:55AM WOX 5291 - XR CHEST 2V FRONTAL/LAT / PROCEDURE REASON: Acute cough * * * * Physician Interpretation * * * * EXAMINATION: CHEST RADIOGRAPH (2 VIEW FRONTAL & LATERAL) CLINICAL HISTORY: Acute cough MQ: XC2_6 EXAM DATE/TIME: 02/20/2024 8:55 AM COMPARISON: Radiograph dated 08/19/2007 RESULT: Lines, tubes, and devices: None. Lungs and pleura: Focal right upper lobe airspace consolidation. No pleural effusion or pneumothorax. Cardiomediastinal silhouette: Normal cardiomediastinal silhouette. Bones and soft tissues: Unremarkable. IMPRESSION IMPRESSION: Right upper lobe pneumonia. Lumber Carrier: ELENI Transcribe Date/Time: Feb 20 2024 8:58A Dictated by : MARY JANE GLASGOW MD This examination was interpreted and the report reviewed and electronically signed by: MARY JANE GLASGOW MD on Feb 20 2024 8:59AM EST [facility] Radiology Study observation (narrative) [facility] XR Chest PA and LateralOrder ed By: Ccf Provider on 02-20-2024 [facility] CBC panel Auto (Bld)on 05-09 Erythrocyte distribution width (RBC) [Ratio] 12.5 % 11.5 - 15.0 % [facility] Hematocrit (Bld) [Volume fraction] 42.3 % 36.0 - 46.0 % [facility] Hemoglobin (Bld) [Mass/Vol] 14.1 g/dL 11.5 - 15.5 g/dL [facility] MCH (RBC) [Entitic mass] 30.5 pg 26.0 - 34.0 pg [facility] MCHC (RBC) [Mass/Vol] 33.3 g/dL 30.5 - 36.0 g/dL [facility] MCV (RBC) [Entitic vol] 91.4 fL 80.0 - 100.0 fL [facility] Nucleated RBC (Bld) [#/Vol] <0.01 k/uL [facility] Platelet mean volume (Bld) [Entitic vol] 11.4 fL 9.0 - 12.7 fL [facility] Platelets (Bld) [#/Vol] 238 10*3/uL 150 - 400 k/uL [facility] RBC (Bld) [#/Vol] 4.63 10*6/uL 3.90 - 5.2 0 m/uL [facility] WBC (Bld) [#/Vol] 10.10 10*3/uL 3.70 - 11 .00 k/uL [facility] Comprehensive metabolic 2000 panelon 05-09-2022 Albumin [Mass/Vol] 4.4 g/dL 3.9 - 4.9 g/dL [facility] ALP [Catalytic activity/Vol] 82 U/L 34 - 123 U/L [facility] ALT [Catalytic activity/Vol] 12 U/L 7 - 38 U/L [facility] Anion gap [Moles/Vol] 9 mmol/L 9 - 18 mmol/L [facility] AST [Catalytic activity/Vol] 21 U/L 13 - 35 U/L [facility] Bilirubin [Mass/Vol] 0.4 mg/dL 0.2 - 1 .3 mg/dL [facility] Calcium [Mass/Vol] 9.3 mg/dL 8.5 - 10. 2 mg/dL [facility] Chloride [Moles/Vol] 105 mmol/L 97 - 10 5 mmol/L [facility] CO2 [Moles/Vol] 23 mmol/L 22 - 30 mmol/L [facility] Creatinine [Mass/Vol] 0.80 mg/dL 0.58 - 0.96 mg/dL [facility] Estimated Glomerular Filtration Rate 96 mL/min/1.73m >=60 mL/min/1.73m [facility] Glucose [Mass/Vol] 92 mg/dL 74 - 99 mg/dL [facility] Potassium [Moles/Vol] 4.4 mmol/L 3.7 - 5.1 mmol/L [facility] Protein [Mass/Vol] 7.4 g/dL 6.3 - 8.0 g/dL [facility] Sodium [Moles/Vol] 137 mmol/L 136 - 144 mmol/L [facility] Urea nitrogen [Mass/Vol] 9 mg/dL 7 - 21 mg/dL [facility] Lipid 1996 panelon 3 Cholesterol [Mass/Vol] 158 mg/dL <200 mg/dL [facility] Cholesterol in HDL [Mass/Vol] 50 mg/dL >39 mg/dL [facility] Cholesterol in LDL [Mass/Vol] 87 mg/dL <100 mg/dL [facility] Cholesterol in LDL/Cholesterol in HDL [Mass ratio] 1.74 {ratio} <2.54 [facility] Cholesterol in VLDL [Mass/Vol] 21 mg/dL <30 mg/dL [facility] Cholesterol non HDL [Mass/Vol] 108 mg/dL <130 mg/dL [facility] Cholesterol.total/Chol esterol in HDL [Mass ratio] 3.16 {ratio} <5.10 [facility] Fasting Time 13 hrs [facility] Triglyceride [Mass/Vol] 107 mg/dL <150 mg/dL [facility] XR Lumbar spine 3 Viewson IMPRESSION: No acute osseous abnormality identified. Lumber Carrier: ELENI Transcribe Date/Time: May 31 2021 8:40A Dictated by : BOB ROD MD This examination was interpreted and the report reviewed and electronically signed by: BOB ROD MD on May 31 2021 8:41AM EST DIVISION OF RADIOLOGY * * *Final Report* * * DATE OF EXAM: May 31 2021 8:39AM WOX 5228 - XR LUMBAR 3V AP/LAT/L5-S1 / PROCEDURE REASON: Acute midline low back pain without sciatica * * * * Physician Interpretation * * * * Lumbar spine radiographs HISTORY: 40 years old Clinical information: Acute midline low back pain without sciatica Lower back pain x 2 months after moving furniture TECHNIQUE: Images: XR LUMBAR 3V AP/LAT/L5-S1 Comparison: None. RESULT: Findings: Intervertebral disc spaces are maintained. Minimal endplate osteophyte formation involving the superior endplate of L4 and L5. No fracture. SI joints appear to be intact. Paraspinous soft tissues are unremarkable in appearance. DIVISION OF RADIOLOGY Provider, Elise Ivey - 05/31/2021 * * *Final Report* * * DATE OF EXAM: May 31 2021 8:39AM WOX 5228 - XR LUMBAR 3V AP/LAT/L5-S1 / PROCEDURE REASON: Acute midline low back pain without sciatica * * * * Physician Interpretation * * * * Lumbar spine radiographs HISTORY: 40 years old Clinical information: Acute midline low back pain without sciatica Lower back pain x 2 months after moving furniture TECHNIQUE: Images: XR LUMBAR 3V AP/LAT/L5-S1 Comparison: None. RESULT: Findings: Intervertebral disc spaces are maintained. Minimal endplate osteophyte formation involving the superior endplate of L4 and L5. No fracture. SI joints appear to be intact. Paraspinous soft tissues are unremarkable in appearance. IMPRESSION IMPRESSION: No acute osseous abnormality identified. Lumber Carrier: PSCB Transcribe Date/Time: May 31 2021 8:40A Dictated by : BOB ROD MD This examination was interpreted and the report reviewed and electronically signed by: BOB ROD MD on May 31 2021 8:41AM EST [facility] Radiology Study observation (narrative) [facility] XR Lumbar spine 3 ViewsOrder ed By: Ccf Provider on 05-31-2021 [facility] CORONAVIRUS PCR [CCL]on 11-04 REF LAB REPORT Negative Normal [facility] Comment on above: Performed By: #### [id number] #### [facility],[address] [place] [id number] CORONAVIRUS PCR [CCL]on 11-04 COVID 19 Result [employer]ADITIONAL CH[employer]ESE HERBALIST Negative [facility] Comment on above: Result Comment: Nega tive for COVID19 (SARS CoV2) by PCR. This test was developed and its performance characteristics determined by [facility]'s [place] [facility] [place]. This test has been authorized by FDA under an Emergency Use Authorization (EUA). This test has been validated in accordance with the FDA's Guidance Document Policy for Diagnostics Testing in Laboratories Certified to Perform High Complexity Testing under CLIA prior to Emergency use Authorization for Coronavirus Disease 2019 during the Public Health Emergency issued on July 05, 2019. [address] [place] [address] Nahum Yeager III, M.D. [id number] Performed By: #### [id number] #### [facility],[address] [place] [id number] COVID 19 Source TRADITIONAL CHINESE HERBALIST NASAL SWAB Normal [facility] Comment on above: Performed By: #### [id number] #### [facility],[address] [place] [id number] Office Visit: recheck rectum on 01-31-2017 Documentation of current medications (procedure) Done Invalid Interpretation Code [facility] [employer] Work Phone: Fall risk assessment No Invalid Interpretation Code [facility] [employer] Work Phone: Tobacco smoking status NHIS Never Invalid Interpretation Code [facility] [employer] Work Phone: Tobacco use [facility] Never smoker Invalid Interpretation Code [facility] [employer] Work Phone: Office Visit: f/u hemorrhoid ectomyon 01-04-2017 Documentation of current medications (procedure) Done Invalid Interpretation Code [facility] [employer] Work Phone: Fall risk assessment No Invalid Interpretation Code [facility] [employer] Work Phone: Tobacco smoking status NHIS Never Invalid Interpretation Code [facility] [employer] Work Phone: Tobacco use [facility] Never smoker Invalid Interpretation Code [facility] Work Phone: Office Visiton 12-19-2016 Fall risk assessment No [facility] Work Phone: Protein mass conc Done [facility] Work Phone: Tobacco smoking status NHIS Never [facility] Work Phone: Tobacco smoking status NHIS Never smoker [facility] Work Phone: Vital Signs Date Time Vital Sign Value Performing Clinician Facility 11-25-2024 13:07-0400 Body height 167.[address] Yasmin Montenegro MD Work Phone: [facility] 11-25-2024 13:03-0400 Body mass index (BMI) [Ratio] 24.5 kg/m2 Dr. Yasmin Montenegro MD Work Phone: [facility] 11-25-2024 13:03-0400 Body weight 69.[address] Yasmin Montenegro MD Work Phone: [facility] 11-25-2024 13:03-0400 Diastolic blood pressure 70 mm[Hg] Dr. Yasmin Montenegro MD Work Phone: [facility] 11-25-2024 13:03-0400 Systolic blood pressure 105 mm[Hg] Dr. Yasmin Montenegro MD Work Phone: [facility] 05-20-2024 17:03-0500 Body height 171 cm Yasmin Montenegro MD Work Phone: [facility] 05-20-2024 17:03-0500 Body mass index (BMI) [Ratio] 24.55 kg/m2 Yasmin Montenegro MD Work Phone: [facility] 05-20-2024 17:03-0500 Body temperature 96.49 [degF] Yasmin Montenegro MD Work Phone: [facility] 05-20-2024 17:03-0500 Body weight 71.8 kg Yasmin Montenegro MD Work Phone: [facility] 05-20-2024 17:03-0500 Diastolic blood pressure 70 mm[Hg] Yasmin Montenegro MD Work Phone: [facility] 05-20-2024 17:03-0500 Heart rate 69 /min Yasmin Montenegro MD Work Phone: [facility] 05-20-2024 17:03-0500 Respiratory rate 18 /min Yasmin Montenegro MD Work Phone: [facility] 05-20-2024 17:03-0500 SaO2% (BldA) [Mass fraction] 100 % Yasmin Montenegro MD Work Phone: [facility] 05-20-2024 17:03-0500 Systolic blood pressure 116 mm[Hg] Yasmin Montenegro MD Work Phone: [facility] 02-28-2024 07:07-0400 Body mass index (BMI) [Ratio] 24.01 kg/m2 Latonia Stauffer DIRECTOR MARKETING.TRAINING SYSTEMS OFFICER Work Phone: [facility] 02-28-2024 07:07-0400 Body weight 69.4 kg Latonia Stauffer DIRECTOR MARKETING.TRAINING SYSTEMS OFFICER Work Phone: [facility] 02-28-2024 07:07-0400 Diastolic blood pressure 75 mm[Hg] Latonia Stauffer DIRECTOR MARKETING.TRAINING SYSTEMS OFFICER Work Phone: [facility] 02-28-2024 07:07-0400 Heart rate 70 /min Latonia Stauffer DIRECTOR MARKETING.TRAINING SYSTEMS OFFICER Work Phone: [facility] 02-28-2024 07:07-0400 Respiratory rate 16 /min Latonia Stauffer DIRECTOR MARKETING.TRAINING SYSTEMS OFFICER Work Phone: [facility] 02-28-2024 07:07-0400 SaO2% (BldA) [Mass fraction] 98 % Latonia Stauffer DIRECTOR MARKETING.TRAINING SYSTEMS OFFICER Work Phone: [facility] 02-28-2024 07:07-0400 Systolic blood pressure 114 mm[Hg] Latonia Stauffer DIRECTOR MARKETING.TRAINING SYSTEMS OFFICER Work Phone: [facility] 02-20-2024 08:01-0400 Body mass index (BMI) [Ratio] 24.19 kg/m2 [facility] DIRECTOR MARKETING.PANEL EDGE SEALER Work Phone: [facility] 02-20-2024 08:01-0400 Body temperature 100.99 [degF] [facility] DIRECTOR MARKETING.PANEL EDGE SEALER Work Phone: [facility] 02-20-2024 08:01-0400 Body weight 69.9 kg [facility] DIRECTOR MARKETING.PANEL EDGE SEALER Work Phone: [facility] 02-20-2024 08:01-0400 Diastolic blood pressure 82 mm[Hg] [facility] DIRECTOR MARKETING.PANEL EDGE SEALER Work Phone: [facility] 02-20-2024 08:01-0400 Heart rate 106 /min [facility] DIRECTOR MARKETING.PANEL EDGE SEALER Work Phone: [facility] 02-20-2024 08:01-0400 Respiratory rate 20 /min [facility] DIRECTOR MARKETING.PANEL EDGE SEALER Work Phone: [facility] 02-20-2024 08:01-0400 SaO2% (BldA) [Mass fraction] 98 % [facility] DIRECTOR MARKETING.PANEL EDGE SEALER Work Phone: [facility] 02-20-2024 08:01-0400 Systolic blood pressure 122 mm[Hg] [facility] DIRECTOR MARKETING.PANEL EDGE SEALER Work Phone: [facility] 09-05-2023 09:39-0400 Body height 167.[address] Yasmin Montenegro Work Phone: [facility] 09-05-2023 09:33-0400 Body mass index (BMI) [Ratio] 24.8 kg/m2 Dr. Yasmin Montenegro Work Phone: [facility] 09-05-2023 09:33-0400 Body weight 69.[address] Yasmin Montenegro Work Phone: [facility] 09-05-2023 09:33-0400 Diastolic blood pressure 82 mm[Hg] Dr. Yasmin Montenegro Work Phone: [facility] 09-05-2023 09:33-0400 Systolic blood pressure 136 mm[Hg] Dr. Yasmin Montenegro Work Phone: [facility] 10-16-2022 14:59-0400 Body height 167.[address] Yasmin Montenegro Work Phone: [facility] 10-16-2022 14:53-0400 Body mass index (BMI) [Ratio] 24.7 kg/m2 Dr. Yasmin Montenegro Work Phone: [facility] 10-16-2022 14:53-0400 Body weight 69.[address] Yasmin Montenegro Work Phone: [facility] 10-16-2022 14:53-0400 Diastolic blood pressure 76 mm[Hg] Dr. Yasmin Montenegro Work Phone: [facility] 10-16-2022 14:53-0400 Systolic blood pressure 124 mm[Hg] Dr. Yasmin Montenegro Work Phone: [facility] 05-09-2022 08:44-0500 Body height 170.5 cm Yasmin Montenegro MD Work Phone: [facility] 05-09-2022 08:44-0500 Body temperature 96.8 [degF] Yasmin Montenegro MD Work Phone: [facility] 05-09-2022 08:44-0500 Body weight 68.95 kg Yasmin Montenegro MD Work Phone: [facility] 05-09-2022 08:44-0500 Diastolic blood pressure 72 mm[Hg] Yasmin Montenegro MD Work Phone: [facility] 05-09-2022 08:44-0500 Heart rate 75 /min Yasmin Montenegro MD Work Phone: [facility] 05-09-2022 08:44-0500 Respiratory rate 18 /min Yasmin Montenegro MD Work Phone: [facility] 05-09-2022 08:44-0500 SaO2% (BldA) [Mass fraction] 99 % Yasmin Montenegro MD Work Phone: [facility] 05-09-2022 08:44-0500 Systolic blood pressure 118 mm[Hg] Yasmin Montenegro MD Work Phone: [facility] 10-10-2021 09:19-0400 Body height 167.[address] Yasmin Montenegro Work Phone: [facility] Work Phone: 10-10-2021 09:19-0400 Body mass index (BMI) [Ratio] 24.2 kg/m2 Dr. Yasmin Montenegro Work Phone: [facility] Work Phone: 10-10-2021 09:19-0400 Body weight 68.[address] Yasmin Montenegro Work Phone: [facility] Work Phone: 10-10-2021 09:19-0400 Diastolic blood pressure 66 mm[Hg] Dr. Yasmin Montenegro Work Phone: [facility] Work Phone: 10-10-2021 09:19-0400 Systolic blood pressure 104 mm[Hg] Dr. Yasmin Montenegro Work Phone: [facility] Work Phone: Encounters Encounter Date Encounter Type Care Provider Facility Start: 11-25-2024 End: 11-25-2024 Patient encounter status Soraida Tam TRADITIONAL CHINESE HERBALIST-C [facility] Start: 11-25-2024 End: 11-25-2024 ambulatory Soraida Tam TRADITIONAL CHINESE HERBALIST Facility:[facility] Start: 11-25-2024 End: 11-25-2024 Patient encounter procedure Soraida Tam TRADITIONAL CHINESE HERBALIST-C -[facility] Work Phone: Start: 10-07-2024 End: 11-07-2024 ambulatory Yasmin Montenegro MD Work Phone: [facility] Start: 05-20-2024 End: 05-20-2024 Patient encounter status Yasmin Montenegro MD Work Phone: [facility] Work Phone: Start: 05-20-2024 End: 05-20-2024 Periodic preventive med est patient 40-64yrs Yasmin Montenegro MD Work Phone: [facility] Comment on above: Routine medical exam (Primary Dx); Skin lesion of right upper extremity; ASCUS of cervix with negative high risk HPV; Episodic paroxysmal hemicrania, not intractable; History of back strain; Screening for depression; Encounter for screening examination for other mental health and behavioral disorders Start: 05-20-2024 End: 05-20-2024 ambulatory YASMIN MONTENEGRO Facility:[facility] Start: 05-20-2024 Encounter for genera l adult medical examination without abnormal findings YASMIN MONTENEGRO [facility] Start: 03-05-2024 End: 03-05-2024 ambulatory Immunization [facility] Nurse [facility] Work Phone: [facility] Start: 03-05-2024 End: 03-05-2024 Patient encounter procedure Immunization Clinic Nurse [facility] Work Phone: [facility] Start: 02-29-2024 End: 02-29-2024 ambulatory Yasmin Montenegro MD Work Phone: [facility] Comment on above: X-ray interpretation Start: 02-28-2024 End: 02-28-2024 Subsequent hospital visit by physician Xr [facility] Work Phone: Radiology Comment on above: Pneumonia of right u pper lobe due to infectious organism [J18.9] Start: 02-28-2024 End: 02-28-2024 ambulatory YASMIN MONTENEGRO Facility:[facility] Start: 02-28-2024 End: 02-28-2024 Office outpatient visit 15 minutes Latonia Stauffer APRN.TRAINING SYSTEMS OFFICER Work Phone: [facility] [place] Comment on above: Pneumonia of right u pper lobe due to infectious organism (Primary Dx) Start: 02-20-2024 End: 02-20-2024 Telephone encounter Rox Rosenberg DIRECTOR MARKETING.PANEL EDGE SEALER Work Phone: [facility] Comment on above: Results Start: 02-20-2024 End: 02-20-2024 Subsequent hospital visit by physician Xr [facility] Work Phone: Radiology Comment on above: Acute cough [R05.1] Start: 02-20-2024 End: 02-20-2024 ambulatory YASMIN MONTENEGRO Facility:[facility] Start: 02-20-2024 End: 02-20-2024 Office outpatient visit 25 minutes Rox Rosenberg DIRECTOR MARKETING.PANEL EDGE SEALER Work Phone: [facility] Comment on above: Acute cough (Primary Dx); Community acquired pneumonia of right lung, unspecified part of lung Start: 09-06-2023 End: 09-06-[address] Yasmin Montenegro Work Phone: [facility] Work Phone: Start: 09-06-2023 End: 09-06-[address] Yasmin Montenegro Work Phone: [facility] Work Phone: Start: 09-05-2023 End: 09-05-[address] Yasmin Montenegro Work Phone: [facility] Work Phone: Start: 02-14-2023 End: 02-14-2023 ambulatory Immunization Clinic Nurse [facility] Work Phone: [facility] [place] Start: 10-16-2022 End: 10-16-[address] Yasmin Montenegro Work Phone: [facility] Work Phone: Start: 10-16-2022 End: 10-16-[address] Yasmin Montenegro Work Phone: [facility] Start: 05-09-2022 End: 05-09-2022 Patient encounter status Yasmin Montenegro MD Work Phone: [facility] [place] Start: 05-09-2022 End: 05-09-2022 Periodic preventive med est patient 40-64yrs Yasmin Montenegro MD Work Phone: [facility] Comment on above: Routine medical exam (Primary Dx); Pain of toe of left foot; Encounter for immunization; Screening, lipid; Encounter for screening for diabetes mellitus Start: 02-25-2022 End: 02-25-2022 ambulatory Immun[facility] Nurse [facility] Work Phone: [facility] [place] Comment on above: Arrived Start: 10-10-2021 End: 10-10-[address] Yasmin Montenegro Work Phone: [facility] Start: 05-31-2021 End: 05-31-2021 Subsequent hospital visit by physician Xr [facility] Work Phone: Radiology Comment on above: Acute midline low ba ck pain without sciatica [M54.50] Start: 11-18-2019 End: 11-27-2019 Patient encounter procedure EDGARDO PALACIO [facility] Procedures Date Procedure Procedure Detail Performing Clinician Start: 05-20-2024 Adult depression screening assessment Yasmin Montenegro MD Work Phone: Start: 02-28-2024 Radiologic exam chest 2 views Latonia Stauffer DIRECTOR MARKETING.TRAINING SYSTEMS OFFICER Work Phone: Start: 02-20-2024 Radiologic exam chest 2 views Rox Rosenberg DIRECTOR MARKETING.PANEL EDGE SEALER Work Phone: Start: 09-06-[address] Yasmin Montenegro Work Phone: Start: 09-06-[address] Yasmin gonzales Work Phone: Start: 02-14-2023 INFLUENZA VACCINE, AGE 6 MO - 64 YR, QUADRIVALENT (AFLURIA, FLULAVAL, FLUZONE) Yasmin Montenegro MD Work Phone: Start: 10-16-[address] Yasmin Montenegro Work Phone: Start: 02-25-2022 INFLUENZA VACCINE QUADRIVALENT 6 MO - 64 YRS IM Darci Maya MD Work Phone: Start: 10-10-2021 End: 10-10-[address] Yasmin Montenegro Work Phone: Start: 05-31-2021 Radex spine lumbosacral 2/3 views Latonia Stauffer DIRECTOR MARKETING.TRAINING SYSTEMS OFFICER Work Phone: Start: 04-20-2010 End: 11-24-2010 H/O: section Previous delivery, antepartum condition or complication Xr [facility] Work Phone: Plan of Treatment Date Care Activity Detail Author Start: 11-11-2028 Screening for malign ant neoplasm of cervix Cervical Cancer Screening [facility] Start: 05-26-2025 End: 05-26-2025 Patient encounter procedure 05/26/2025 5:00 PM EST Office Visit [facility] [address] [place] [address] [id number] Yasmin Montenegro MD [address] [place], [place] [id number] Yearly [facility] Comment on above: Yearly Start: 05-20-2025 Anxiety Screening Anxiety Screening [facility] Start: 05-20-2025 Depression Screening Depression Scre ening [facility] Start: 05-20-2025 Urine microalbumin profile DTaP,Tdap,Td Vaccine (1 - Tdap) [facility] Comment on above: Postponed from 07/15 (Declined at this time) Start: 01-05-2025 Influenza vaccination Influenza Vacc ine (#1) [facility] Start: 11-25-2024 Screening mammography SEGUNDO Calderón (CAD)W/BRITTANEY GOMEZ [facility] Start: 09-05-2024 Screening for malign ant neoplasm of breast Mammogram Screening [facility] Start: 05-20-2024 End: 05-20-2024 Patient encounter procedure 05/20/2024 5:00 PM EST Office Visit [facility] [address] [place] [address] Yasmin Montenegro MD [address] [place] [address] Yearly [facility] Comment on above: Yearly Start: 05-15-2024 Hepatitis B Vaccine (1 of 3 - 19+ 3-dose series) Hepatitis B Vaccine (1 of 3 - 19+ 3-dose series) [facility] Comment on above: Postponed from 07/15 (Declined at this time) Start: 05-15-2024 Urine microalbumin profile DTaP,Tdap,Td Vaccine (1 - Tdap) [facility] Comment on above: Postponed from 07/15 (Declined at this time) Start: 03-05-2024 End: 03-05-2024 Patient encounter procedure 03/05/2024 3:40 PM EDT Immunization [facility] [address] [place] [address] [facility], Immunization Clinic Nurse [address] [place] [address] flu vaccine [facility] Comment on above: flu vaccine Start: 01-06-2024 Covid-19 Vaccine ( season) Covid-19 Vaccine ( season) [facility] Start: 01-06-2024 Influenza vaccination Influenza Vacc ine (#1) [facility] Start: 10-17-2023 Mammography Mammogram Screening [facility] Start: 07-30-2023 HPV TESTING HPV TESTING [facility] Start: 07-30-2023 PAP TESTING PAP TESTING [facility] Start: 05-09-2023 COVID-19 VACCINE (4 - Booster for Pfizer series) COVID-19 VACCINE (4 - Booster for Pfizer series) [facility] Comment on above: Postponed from 06/02 (Declined at this time) Start: 05-09-2023 HEPATITIS B (1 of 3 - 3-dose series) HEPATITIS B (1 of 3 - 3-dose series) [facility] Comment on above: Postponed from 07/15 (Declined at this time) Start: 05-09-2023 Hepatitis B Vaccine (1 of 3 - 3-dose series) Hepatitis B Vaccine (1 of 3 - 3-dose series) [facility] Comment on above: Postponed from 07/15 (Declined at this time) Start: 01-05-2023 Covid-19 Vaccine () Covid-19 Vaccine ( season) [facility] Start: 10-10-2022 Mammography MAMMOGRAM [facility] Start: 06-02-2021 COVID-19 VACCINE (4 - Booster for Pfizer series) COVID-19 VACCINE (4 - Booster for Pfizer series) [facility] Start: 05-07-2021 DEPRESSION ASSESSMENT DEPRESSION ASS ESSMENT [facility] Start: 01-31-2017 End: 01-31-2017 Appointment [facility] Work Phone: Start: 01-24-2017 End: 01-24-2017 Appointment Appointment [facility] Work Phone: Start: 01-04-2017 End: 01-04-2017 Appointment Appointment [facility] Work Phone: Start: 12-19-2016 End: 12-19-2016 Appointment Appointment [facility] Work Phone: Start: 2000 Hepatitis B Vaccine (1 of 3 - 19+ 3-dose series) Hepatitis B Vaccine (1 of 3 - 19+ 3-dose series) [facility] Start: 2000 Urine microalbumin profile [facility] Start: 07-16-1999 Anxiety Screening Anxiety Screening [facility] Start: 07-16-1999 Depression Screening Depression Scre ening [facility] Start: 07-16-1999 HEPATITIS C SCREENING HEPATITIS C SC KWADWONING [facility] Start: 1981 HEPATITIS B (1 of 3 - 3-dose series) HEPATITIS B (1 of 3 - 3-dose series) [facility] End: 11-06-2025 DBT Breast - bilateral screening BEBE SCREENING W BRITTANEY Radiology Routine Encounter for screening mammogram for breast cancer 1 Occurrences starting 10/07/2024 until 11/06/2025 [facility] Work Phone: Comment on above: 1 Occurrences starti ng 10/07/2024 until 11/06/2025 Tdap vaccine 7 yrs/> im TDAP VAC CINE AGE 7+ IM Immunization/Injection Routine Encounter for immunization Ordered: 05/09/2022 [facility] Work Phone: Comment on above: Ordered: 05/09/2022 [facility] Immunizations Immunization Date Immunization Notes Care Provider Lyndsay rosado 03-05-2024 influenza, seasonal, injectable Immunization [place] Work Phone: [facility] 03-05-2024 influenza virus vaccine, unspecified formulation Yasmin Montenegro MD Work Phone: [facility] 02-14-2023 influenza, injectable, quadrivalent, contains preservative Immunization [place] Work Phone: [facility] Work Phone: 02-14-2023 influenza virus vaccine, unspecified formulation [facility]r [place] Work Phone: [facility] 02-25-2022 influenza, injectable, quadrivalent, contains preservative Immunization [facility] Work Phone: [facility] 02-11-2021 influenza, injectable, quadrivalent, preservative free [facility]ization [facility] Work Phone: [facility] Work Phone: 03-03-2020 influenza, injectable, quadrivalent, contains preservative Immunization [place] Work Phone: [facility] Work Phone: 03-14-2019 influenza, injectable, quadrivalent, contains preservative Immunization [facility] Work Phone: [facility] 02-15-2018 influenza, injectable, quadrivalent, contains preservative Immunization [place] Work Phone: [facility] Work Phone: 02-23-2017 influenza, injectable, quadrivalent, contains preservative Immunization [place] Work Phone: [facility] Work Phone: 02-11-2016 influenza, injectable, quadrivalent, contains preservative Immunization [place] Work Phone: [facility] 02-25-2015 influenza, injectable, quadrivalent, contains preservative Immunization [place] Work Phone: [facility] 03-05-2014 influenza, seasonal, injectable Immunization [facility] Work Phone: [facility] Work Phone: 03-01-2013 influenza virus vaccine, unspecified formulation Immunization [place] Work Phone: [facility] 02-11-2011 influenza virus vaccine, unspecified formulation Immunization [facility] Work Phone: [facility] 07-20-2010 RHO(D) immune globulin- IV or IM Immunization [facility] Work Phone: [facility] Work Phone: 12-09-2009 RHO(D) immune globulin- IV or IM Immunization [place] Work Phone: [facility] Work Phone: NEGATED: Highlighted row has not occurred!06-05-2022 tetanus toxoid, reduced diphtheria toxoid, and acellular pertussis vaccine, adsorbed Yasmin Montenegro MD Work Phone: [facility] Work Phone: Comment on above: Deferred: Postponed Payers Date Payer Category Payer Self-pay [id number] 2018 Private Health Insurance MMO SUP ER[employer] O [id number] 2018 Unknown [id number] 2014 Unknown [id number] 1980 Unknown [id number] Unknown [id number] Unknown [id number] Social History Date Type Detail Facility Start: 10-10-2021 End: 12-14-2022 Tobacco smoking status NHIS Unknown if ever smoked [facility] Start: 1980 Sex Assigned At Female W [facility] Start: 12-14-2022 Tobacco smoking stat us NHIS Never smoked tobacco [facility] Work Phone: Start: 05-31-2021 End: 05-20-2024 Alcohol intake Current non-drinker of alcohol (finding) [facility] Start: 1980 Sex Assigned At Not on file [facility] Start: 05-31-2021 End: 02-14-2023 History of Social function [facility] Work Phone: Start: 05-31-2021 End: 02-14-2023 Tobacco use panel [facility] Work Phone: Adult Depression Screening Assessment 0 [facility] Work Phone: Start: 05-01-2021 End: 05-31-2021 Exposure to SARS-CoV-2 (event) Yes [facility] Has the [employer], or [employer] threatened to shut off services in your home in past 12Mo No [facility] Are you now , , , , never or living with a partner? [facility] How often do you hav e 6 or more drinks on 1 occasion? Never [facility] Do you feel stress - tense, restless, nervous, or anxious, or unable to sleep at night because your mind is troubled all the time - these days [OSQ] Only a little [facility] (I/We) worried whemanda er (my/our) food would run out before (I/we) got money to buy more. Never true [facility] Functional Status Date Assessment Result Facility 10-23-2014 Are you deaf, or do you have serious difficulty hearing No 10/23/2014 8:33 AM EDT China Velásquez LPN No [facility] 10-23-2014 Are you blind, or do you have serious difficulty seeing, even when wearing glasses No 10/23/2014 8:33 AM EDT China Velásquez LPN No [facility] 10-23-2014 Do you have serious difficulty walking or climbing stairs No 10/23/2014 8:33 AM EDT China Velásquez LPN No [facility] 10-23-2014 Do you have difficul ty dressing or bathing No 10/23/2014 8:33 AM EDT China Velásquez LPN No [facility] 10-23-2014 Because of a physica l, mental, or emotional condition, do you have difficulty doing errands alone such as visiting a physician's office or shopping No 10/23/2014 8:33 AM EDT China Velásquez LPN No [facility] Mental Status Date Assessment Result Facility 10-23-2014 Because of a physica l, mental, or emotional condition, do you have serious difficulty concentrating, remembering, or making decisions No 10/23/2014 8:33 AM EDT China Velásquez LPN [facility] Clinical Notes 07-14-2013 to 10-07-2024 Patient InstructionsYasmin Montenegro MD - 05/20/2024 4:57 PM Lou Chavez, RT(R) - 02/28/2024 8:00 AM Latonia Astorga APRN.TRAINING SYSTEMS OFFICER - 02/28/2024 7:06 AM EDT Note Date & Type Note Facility 10-07-2024 Note Patient Outreach (IN TMWS) MELONIE ROSE ([id number]) 1980 F Date Time Provider Department 10/07/24 YASMIN MONTENEGRO INTMWS During your visit today, we recorded the following information about you: Allergies As of Date: 10/07/2024 (No Known Allergies) Date Reviewed: 05/20/2024 Reviewed by: Deborah Khan LPN - Fully Assessed Visit Diagnosis:Encounter for screening mammogram for breast cancer [Z12.31] Order(s):BEBE SCREENING W BRITTANEY [[id number]] Order #: [id number] FUTURE Meds Comments as of 11/24/2010: Problem List As Of Date 10/07/2024 Noted Resolved Supervision of [facility] [employer] [Z34.00] 12/17/2007 12/09/2009 Incomplete spontaneous without mention*12/09/2009 05/24/2010 Unspecified disorder of female genital organs [*12/22/2009 11/27/2011 Threatened , antepartum [O20.0] 02/24/2010 11/24/2010 Previous delivery, antepartum conditio*04/20/2010 11/24/2010 Anal or rectal pain [K62.89] 08/22/2011 11/27/2011 Rectal bleeding [K62.5] 08/22/2011 11/27/2011 Surveillance of previously prescribed contracep*11/27/2011 12/09/2012 BRBPR (bright red blood per rectum) [K62.5] 07/14/2013 10/23/2014 Internal and external ulcerated hemorrhoids [K6*10/17/2016 Anal fistula [K60.30] 11/20/2016 Encounter Status:Closed by EDUARDO, PRODUSER on 11/07/24 [facility] 05-20-2024 Instructions Yasmin Montenegro MD - 05/20/2024 5:57 PM EST - Monitor for any changes in the small lesion on your right forearm. If you notice any changes in size, color, or shape, schedule an appointment with a principal systems engineer. - Schedule a dermatology appointment for a full skin check, especially given your history of sunburns and fair skin. You can choose a principal systems engineer covered by your insurance. - Maintain good posture and avoid sitting in overly comfortable chairs for extended periods to prevent back strain. - Consider incorporating stretching exercises and activities that improve core strength and balance, such as yoga, to support your back health. - Monitor for any changes in your headaches, particularly if they become more frequent or severe, or if they are consistently on one side. If this occurs, schedule an appointment for further evaluation. - Continue to manage anxiety as needed. If you feel the need for additional support, consider returning to counseling. - Ensure you are up-to-date on vaccinations, including the tetanus shot. If you have not had a tetanus shot since age 21, consider getting one, especially if you will be around young children. - Maintain a healthy lifestyle by eating well, staying active, getting adequate sleep, and drinking plenty of water. documented in this encounter [facility] 05-20-2024 Note HNO ID: [id number] Author: YASMIN MONTENEGRO MD Service: ? Author Type: Physician Type: Progress Notes Filed: 05/20/2024 17:59 Note Text: This note was created using [employer]. Subjective Melonie Rose is a 43 year old female. HISTORY Melonie Rose is a 43 year old lady here for yearly exam and follow up appointment. Melonie Rose is a 43-year-old female presenting for a yearly checkup, with additional concerns about a recent Pap smear result, a persistent skin lesion, episodic headaches, and recurrent lower back pain. Melonie recently underwent a Pap smear at her OBGYN appointment in [place], which revealed atypical squamous cells of undetermined significance (ASCUS). She expresses anxiety about the result, particularly the recommendation to wait three years for a follow-up. She has a family history of cancer, with her grandmother having from an unspecified female cancer. She also reports a small lesion on her right forearm that appeared in the summer and has remained unchanged in size. She initially thought it was a bug bite but now seeks further evaluation. Additionally, she describes experiencing two episodes of headaches, one last winter and one this fall, characterized by quick pulses of pain in the hoahaoism area, lasting from Sunday to Sunday. She notes that the headaches seem to start at the end of a school day and wonders if they might be related to stress or fatigue. Lastly, she mentions recurrent lower back pain, which she attributes to sitting in a comfy chair for too long. She recalls a previous episode of back pain in 2021, for which she sought medical attention due to concerns about myeloma, a condition that a friend's had from. She describes the pain as feeling stuck and wonders if it is related to poor posture. Melonie has a history of anxiety and has previously undergone counseling. She is not currently on medication for anxiety but is open to returning to counseling if needed. She also mentions a previous episode of pneumonia this fall, which she describes as so bad. PAST MEDICAL HISTORY Diagnosis Date Anal fistula Anxiety Internal and external ulcerated hemorrhoids 10/17/2016 No current outpatient medications on file. No current facility-administered medications for this visit. ALLERGIES No Known Allergies FAMILY HISTORY Problem Relation Age of Onset Heart Mother racing heart requiring Diabetes Father Cancer Father 60 colon cancer, post liver transplant other (liver transplant) Father disease(PSC) has returned other (Colitis) Father ileostomy No Known Problems Brother No Known Problems Brother Heart Maternal Grandmother Cancer Maternal Grandmother uterine Alzheimer's Disease Maternal Grandfather Cancer Paternal Grandmother brain Social History Tobacco Use Smoking status: Never Smokeless tobacco: Never Substance Use Topics Alcohol use: No Drug use: No Review of Systems Objective BP 116/70 Pulse 69 Temp (!) 35.8 ?C (96.5 ?F) Resp 18 Ht 171 cm (5' 7.32) Wt 71.8 kg (158 lb 4.6 oz) LMP 05/03/2023 (Exact Date) SpO2 100% BMI 24.55 kg/m? Physical Exam Vitals reviewed. Constitutional: Appearance: Normal appearance. She is well-developed. HENT: Head: Normocephalic and atraumatic. Right Ear: Tympanic membrane, ear canal and external ear normal. Left Ear: Tympanic membrane, ear canal and external ear normal. Nose: Nose normal. Eyes: Conjunctiva/sclera: Conjunctivae normal. Neck: Thyroid: No thyromegaly. Vascular: No carotid bruit. Cardiovascular: Rate and Rhythm: Normal rate and regular rhythm. Pulses: Normal pulses. Heart sounds: Normal heart sounds. No murmur heard. No friction rub. No gallop. Pulmonary: Effort: Pulmonary effort is normal. Breath sounds: Normal breath sounds. Abdominal: General: Bowel sounds are normal. There is no distension. Palpations: Abdomen is soft. There is no mass. Tenderness: There is no abdominal tenderness. Musculoskeletal: General: No deformity. Normal range of motion. Back: Right lower leg: No edema. Left lower leg: No edema. Lymphadenopathy: Cervical: No cervical adenopathy. Skin: General: Skin is warm and dry. Coloration: Skin is not jaundiced or pale. Findings: No rash. Neurological: General: No focal deficit present. Mental Status: She is alert and oriented to person, place, and time. Cranial Nerves: No cranial nerve deficit. Sensory: No sensory deficit. Motor: No abnormal muscle tone. Coordination: Coordination normal. Deep Tendon Reflexes: Reflexes normal. Psychiatric: Attention and Perception: Attention and perception normal. Mood and Affect: Mood and affect normal. Speech: Speech normal. Behavior: Behavior normal. Thought Content: Thought content normal. Cognition and Memory: Cognition and memory normal. Judgment: Judgment normal. Latest Ref Rng 05/09/19 (more content not included)... [facility] 05-20-2024 History of Presen t illness Narrative Images from the original note were not included. This note was created using [employer] Subjective Melonie Rose is a 43 year old female. HISTORY Melonie Rose is a 43 year old lady here for yearly exam and follow up appointment. Melonie Rose is a 43-year-old female presenting for a yearly checkup, with additional concerns about a recent Pap smear result, a persistent skin lesion, episodic headaches, and recurrent lower back pain. Melonie recently underwent a Pap smear at her OBGYN appointment in [place], which revealed atypical squamous cells of undetermined significance (ASCUS). She expresses anxiety about the result, particularly the recommendation to wait three years for a follow-up. She has a family history of cancer, with her grandmother having from an unspecified female cancer. She also reports a small lesion on her right forearm that appeared in the summer and has remained unchanged in size. She initially thought it was a bug bite but now seeks further evaluation. Additionally, she describes experiencing two episodes of headaches, one last winter and one this fall, characterized by quick pulses of pain in the hoahaoism area, lasting from Sunday to Sunday. She notes that the headaches seem to start at the end of a school day and wonders if they might be related to stress or fatigue. Lastly, she mentions recurrent lower back pain, which she attributes to sitting in a comfy chair for too long. She recalls a previous episode of back pain in 2021, for which she sought medical attention due to concerns about myeloma, a condition that a friend's had from. She describes the pain as feeling stuck and wonders if it is related to poor posture. Melonie has a history of anxiety and has previously undergone counseling. She is not currently on medication for anxiety but is open to returning to counseling if needed. She also mentions a previous episode of pneumonia this fall, which she describes as so bad. PAST MEDICAL HISTORY Diagnosis Date Anal fistula Anxiety Internal and external ulcerated hemorrhoids 10/17/2016 No current outpatient medications on file. No current facility-administered medications for this visit. ALLERGIES No Known Allergies FAMILY HISTORY Problem Relation Age of Onset Heart Mother racing heart requiring Diabetes Father Cancer Father 60 colon cancer, post liver transplant other (liver transplant) Father disease(PSC) has returned other (Colitis) Father ileostomy No Known Problems Brother No Known Problems Brother Heart Maternal Grandmother Cancer Maternal Grandmother uterine Alzheimer's Disease Maternal Grandfather Cancer Paternal Grandmother brain Social History Tobacco Use Smoking status: Never Smokeless tobacco: Never Substance Use Topics Alcohol use: No Drug use: No Review of Systems Objective BP 116/70 Pulse 69 Temp (!) 35.8 C (96.5 F) Resp 18 Ht 171 cm (5' 7.32) Wt 71.8 kg (158 lb 4.6 oz) LMP 05/03/2023 (Exact Date) SpO2 100% BMI 24.55 kg/m Physical Exam Vitals reviewed. Constitutional: Appearance: Normal appearance. She is well-developed. HENT: Head: Normocephalic and atraumatic. Right Ear: Tympanic membrane, ear canal and external ear normal. Left Ear: Tympanic membrane, ear canal and external ear normal. Nose: Nose normal. Eyes: Conjunctiva/sclera: Conjunctivae normal. Neck: Thyroid: No thyromegaly. Vascular: No carotid bruit. Cardiovascular: Rate and Rhythm: Normal rate and regular rhythm. Pulses: Normal pulses. Heart sounds: Normal heart sounds. No murmur heard. No friction rub. No gallop. Pulmonary: Effort: Pulmonary effort is normal. Breath sounds: Normal breath sounds. Abdominal: General: Bowel sounds are normal. There is no distension. Palpations: Abdomen is soft. There is no mass. Tenderness: There is no abdominal tenderness. Musculoskeletal: General: No deformity. Normal range of motion. Back: Right lower leg: No edema. Left lower leg: No edema. Lymphadenopathy: Cervical: No cervical adenopathy. Skin: General: Skin is warm and dry. Coloration: Skin is not jaundiced or pale. Findings: No rash. Neurological: General: No focal deficit present. Mental Status: She is alert and oriented to person, place, and time. Cranial Nerves: No cranial nerve deficit. Sensory: No sensory deficit. Motor: No abnormal muscle tone. Coordination: Coordination normal. Deep Tendon Reflexes: Reflexes normal. Psychiatric: Attention and Perception: Attention and perception normal. Mood and Affect: Mood and affect normal. Speech: Speech normal. Behavior: Behavior normal. Thought Content: Thought content normal. Cognition and Memory: Cognition and memory normal. Judgment: Judgment normal. Latest Ref [facility] 05/09/2022 Protein, Total 6.3 - 8.0 g/dL 7.4 Albumin 3.9 - 4.9 g/dL 4.4 Calcium 8.5 - 10.2 mg/dL 9.3 Bilirubin, Total 0.2 - 1.3 mg/dL 0.4 Alkaline Phosphatase 34 - 123 U/L 82 AST 13 - 35 U/L 21 ALT 7 - 38 U/L 12 Glucose 74 - 99 mg/dL 92 BUN 7 - 21 mg/dL 9 Creatinine 0.58 - 0.96 mg/dL 0.80 Sodium 136 - 144 mmol/L 137 Potassium 3.7 - 5.1 mmol/L 4.4 Chloride 97 - 105 mmol/L 105 CO2 22 - 30 mmol/L 23 Anion Gap 9 - 18 mmol/L 9 eGFR >=60 mL/min/1.73m 96 WBC 3.70 - 11.00 k/uL 10.10 RBC 3.90 - 5.20 m/uL 4.63 Hemoglobin 11.5 - 15.5 g/dL 14.1 Hematocrit 36.0 - 46.0 % 42.3 MCV 80.0 - 100.0 fL 91.4 MCH 26.0 - 34.0 pg 30.5 MCHC 30.5 - 36.0 g/dL 33.3 RDW-CV 11.5 - 15.0 % 12.5 Platelet Count 150 - 400 k/uL 238 MPV 9.0 - 12.7 fL 11.4 Absolute nRBC <0.01 k/uL <0.01 Cholesterol, Total <200 mg/dL 158 Triglyceride <150 mg/dL 107 HDL Cholesterol >39 mg/dL 50 Non HDL Cholesterol <130 mg/dL 108 Fasting Time hrs 13 VLDL Cholesterol <30 mg/dL 21 TC:HDL Ratio <5.10 3.16 LDL Cholesterol <100 mg/dL 87 LDL:HDL Ratio <2.54 1.74 Assessment and Plan # Routine medical exam (Z00.00) - Comprehensive physical examination performed; no acute abnormalities noted. - Reviewed previous lab results from 05/09/2022, including metabolic panel, CBC, and lipid profile, all within normal limits. - Discussed the importance of routine health maintenance, including diet, exercise, hydration, and sleep. - Recommended tetanus vaccination if not received after age 20. - Patient has had COVID-19; discussed current vaccination status. # Skin lesion of right upper extremity (L98.9) - Small, mobile, flesh-colored lesion approximately 2 mm in size on the right forearm, stable since summer. - No signs of malignancy observed; lesion is non-tender and benign. - Discussed dermatology referral options, including Dr. Sharad Santana at [place] and [facility]. - Advised patient to check with insurance regarding referral requirements. # ASCUS of cervix with negative high risk HPV (R87.610) - Reviewed recent Pap smear results showing ASCUS with negative high-risk HPV. - Educated patient on the significance of ASCUS and the low risk of cervical cancer with negative HPV. - Discussed standard follow-up protocol of repeating Pap smear in 3 years. - Patient understands and is reassured by the low risk. 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 - Discussed potential causes, including tension headaches and nerve irritation. - Advised monitoring for any changes in pattern or severity, and to report any associated symptoms such as nausea, vomiting, or visual disturbances. - Patient understands and agrees with the plan. # History of back strain (Z87.828) - Recent episode of lower back pain after prolonged sitting in a comfy chair. - Exam reveals mild tenderness and muscle tightness in the lower back, more pronounced on the right side. - Discussed the importance of maintaining good posture and avoiding prolonged sitting in unsupported positions. - Recommended heat application and gentle stretching exercises to alleviate muscle tightness. - Patient understands and agrees with the plan. # Screening for depression (Z13.31) - Completed depression screening; no current symptoms of depression reported. - Patient has a history of anxiety and has previously engaged in counseling. - Patient is aware of the option to return to counseling if needed. # Encounter for screening examination for other mental health and behavioral disorders (Z13.39) - Completed screening for other mental health and behavioral disorders; no current concerns reported. - Patient has a history of anxiety and is aware of available resources for mental health support. Yasmin Montenegro MD documented in this encounter [facility] 02-28-2024 History of Presen t illness Narrative Radiology Service Progress Note PATIENT NAME: Melonie Rose DATE OF SERVICE: February 28, 2024 TIME: 8:03 AM PATIENT IDENTITY VERIFICATION COMPLETED USING TWO (2) IDENTIFIERS: Name and Date of confirmed by patient verbally. FALL SCREENING: Has the patient had 2 falls in the last year or 1 fall with injury or currently using an Ambulatory Assistive Device (Walker, Cane, Wheelchair, Crutches, etc.)? No PATIENT GENDER DATA: Female. status: : No status: NO. PATIENT RELEVANT IMPLANT DATA REVIEWED: Not Applicable PATIENT PRESENTS WITH AN IMPLANTABLE OR ATTACHED VOICE TEACHER: No RADIOLOGY DEPARTMENT: General X-ray: Exam(s) Completed: Chest X-Ray PERIPHERAL IV DATA: Not applicable SIGNED BY: RT Sarika(Maddy) February 28, 2024 8:03 AM documented in this encounter [facility] 02-28-2024 Note HNO ID: [id number] Author: LOU BALLARD RT(R) Service: Radiology Author Type: Technologist Type: Progress Notes Filed: 02/28/2024 08:10 Note Text: Radiology Service Progress Note PATIENT NAME: Melonie Rose DATE OF SERVICE: February 28, 2024 TIME: 8:03 AM PATIENT IDENTITY VERIFICATION COMPLETED USING TWO (2) IDENTIFIERS: Name and Date of confirmed by patient verbally. FALL SCREENING: Has the patient had 2 falls in the last year or 1 fall with injury or currently using an Ambulatory Assistive Device (Walker, Cane, Wheelchair, Crutches, etc.)? No PATIENT GENDER DATA: Female. status: : No status: NO. PATIENT RELEVANT IMPLANT DATA REVIEWED: Not Applicable PATIENT PRESENTS WITH AN IMPLANTABLE OR ATTACHED VOICE TEACHER: No RADIOLOGY DEPARTMENT: General X-ray: Exam(s) Completed: Chest X-Ray PERIPHERAL IV DATA: Not applicable SIGNED BY: RT Sarika(R) February 28, 2024 8:03 AM [facility] 02-28-2024 Note HNO ID: [id number] Author: LATONIA STAUFFER APRN.TRAINING SYSTEMS OFFICER Service: ? Author Type: Nurse Specialist Type: Progress Notes Filed: 02/28/2024 07:27 Note Text: SUBJECTIVE: Depression Screening Never done Anxiety Screening Never done Influenza Vaccine(1) due on 01/06/2024 Covid-19 Vaccine( season) due on 01/06/2024 HPI Melonie Rose is a 43 year old female. PMH significant for ACTIVE PROBLEM LIST Internal and External Ulcerated Hemorrhoids Anal Fistula She was seen in [facility] February 20, 2024 for acute cough body aches chills and fevers. Right upper lobe pneumonia found on CXR. Started on doxycycline.Advised to follow up with primary care. Today reports she has completed 5 days of doxycycline. Last fever was on Sunday, 3 days ago. She notes intermittent cough occasionally productive. No reported wheezing. Some shortness of breath on exertion. Has felt well enough to work. Review of Systems Constitutional: Negative. Respiratory: Positive for cough (intermittent) and shortness of breath (mild SOBOE). Objective BP 114/75 Pulse 70 Resp 16 Wt 69.4 kg (153 lb) LMP 05/12/2023 SpO2 98% BMI 24.01 kg/m? Physical Exam Vitals and nursing note reviewed. Constitutional: Appearance: Normal appearance. HENT: Head: Normocephalic and atraumatic. Eyes: Conjunctiva/sclera: Conjunctivae normal. Cardiovascular: Rate and Rhythm: Normal rate and regular rhythm. Pulmonary: Effort: Pulmonary effort is normal. Breath sounds: Normal breath sounds. Skin: General: Skin is warm and dry. Neurological: Mental Status: She is alert. ALLERGIES No Known Allergies No prescriptions on file. PAST MEDICAL HISTORY Diagnosis Date Anal fistula Anxiety Internal and external ulcerated hemorrhoids 10/17/2016 Social History Tobacco Use Smoking status: Never Smokeless tobacco: Never Substance Use Topics Alcohol use: No Drug use: No ASSESSMENT/PLAN: 1. Pneumonia of right upper lobe due to infectious organism - ICD9: 486, ICD10: J18.9 Feeling much improved. Afebrile x 3 days. Still has a cough. Some shortness of breath on exertion. Recommend deep breathing 10 times every hour while awake. Walking short distances resting to build up her endurance. Chest x-ray today to monitor for resolution. She should continue to feel improved back to baseline. She will let us know if not continuing to improve. - XR CHEST 2V FRONTAL/LAT Latonia Stauffer, DIRECTOR MARKETING.TRAINING SYSTEMS OFFICER Medical Decision Making: Problems: Low: Acute, uncomplicated illness or injury Data: Unique test(s) ordered: 1 Risk: Low: Low risk from testing/treatment Medical Decision Making Level: 3 - Low [facility] 02-28-2024 History of Presen t illness Narrative SUBJECTIVE: Depression Screening Never done Anxiety Screening Never done Influenza Vaccine(1) due on 01/06/2024 Covid-19 Vaccine( season) due on 01/06/2024 HPI Melonie Rose is a 43 year old female. PMH significant for ACTIVE PROBLEM LIST Internal and External Ulcerated Hemorrhoids Anal Fistula She was seen in [facility] February 20, 2024 for acute cough body aches chills and fevers. Right upper lobe pneumonia found on CXR. Started on doxycycline.Advised to follow up with primary care. Today reports she has completed 5 days of doxycycline. Last fever was on Sunday, 3 days ago. She notes intermittent cough occasionally productive. No reported wheezing. Some shortness of breath on exertion. Has felt well enough to work. Review of Systems Constitutional: Negative. Respiratory: Positive for cough (intermittent) and shortness of breath (mild SOBOE). Objective BP 114/75 Pulse 70 Resp 16 Wt 69.4 kg (153 lb) LMP 05/12/2023 SpO2 98% BMI 24.01 kg/m Physical Exam Vitals and nursing note reviewed. Constitutional: Appearance: Normal appearance. HENT: Head: Normocephalic and atraumatic. Eyes: Conjunctiva/sclera: Conjunctivae normal. Cardiovascular: Rate and Rhythm: Normal rate and regular rhythm. Pulmonary: Effort: Pulmonary effort is normal. Breath sounds: Normal breath sounds. Skin: General: Skin is warm and dry. Neurological: Mental Status: She is alert. ALLERGIES No Known Allergies No prescriptions on file. PAST MEDICAL HISTORY Diagnosis Date Anal fistula Anxiety Internal and external ulcerated hemorrhoids 10/17/2016 Social History Tobacco Use Smoking status: Never Smokeless tobacco: Never Substance Use Topics Alcohol use: No Drug use: No ASSESSMENT/PLAN: 1. Pneumonia of right upper lobe due to infectious organism - ICD9: 486, ICD10: J18.9 Feeling much improved. Afebrile x 3 days. Still has a cough. Some shortness of breath on exertion. Recommend deep breathing 10 times every hour while awake. Walking short distances resting to build up her endurance. Chest x-ray today to monitor for resolution. She should continue to feel improved back to baseline. She will let us know if not continuing to improve. - XR CHEST 2V FRONTAL/LAT Latonia Stauffer APRN.CNS Medical Decision Making: Problems: Low: Acute, uncomplicated illness or injury Data: Unique test(s) ordered: 1 Risk: Low: Low risk from testing/treatment Medical Decision Making Level: 3 - Low documented in this encounter [facility] 02-20-2024 Telephone encount er Note Patient returned call and given the message below with no further questions. [facility] 02-20-2024 Miscellaneous Notes Formattin g of this note might be different from the original. Patient returned call and given the message below with no further questions. Please inform patient that x-ray indicated right upper lobe pneumonia. Placed on doxycycline. Rox Rosenberg APRN.CNP documented in this encounter [facility] 02-20-2024 Telephone encount er Note Please inform patient that x-ray indicated right upper lobe pneumonia. Placed on doxycycline. Rox Rosenberg APRN.CNP [facility] 02-20-2024 History of Presen t illness Narrative Radiology Service Progress Note PATIENT NAME: Melonie Rose DATE OF SERVICE: February 20, 2024 TIME: 8:48 AM PATIENT IDENTITY VERIFICATION COMPLETED USING TWO (2) IDENTIFIERS: Name and Date of confirmed by patient verbally. FALL SCREENING: Has the patient had 2 falls in the last year or 1 fall with injury or currently using an Ambulatory Assistive Device (Walker, Cane, Wheelchair, Crutches, etc.)? No PATIENT GENDER DATA: Female. status: : No status: NO. PATIENT RELEVANT IMPLANT DATA REVIEWED: Yes PATIENT PRESENTS WITH AN IMPLANTABLE OR ATTACHED VOICE TEACHER: No RADIOLOGY DEPARTMENT: General X-ray: Exam(s) Completed: Chest X-Ray PERIPHERAL IV DATA: Not applicable SIGNED BY: REY Murdock) February 20, 2024 8:48 AM documented in this encounter [facility] 02-20-2024 Note HNO ID: [id number] Author: NATALIA VALDES RT(R) Service: Radiology Author Type: Technologist Type: Progress Notes Filed: 02/20/2024 08:55 Note Text: Radiology Service Progress Note PATIENT NAME: Melonie Rose DATE OF SERVICE: February 20, 2024 TIME: 8:48 AM PATIENT IDENTITY VERIFICATION COMPLETED USING TWO (2) IDENTIFIERS: Name and Date of confirmed by patient verbally. FALL SCREENING: Has the patient had 2 falls in the last year or 1 fall with injury or currently using an Ambulatory Assistive Device (Walker, Cane, Wheelchair, Crutches, etc.)? No PATIENT GENDER DATA: Female. status: : No status: NO. PATIENT RELEVANT IMPLANT DATA REVIEWED: Yes PATIENT PRESENTS WITH AN IMPLANTABLE OR ATTACHED VOICE TEACHER: No RADIOLOGY DEPARTMENT: General X-ray: Exam(s) Completed: Chest X-Ray PERIPHERAL IV DATA: Not applicable SIGNED BY: Natalia Valdes, RT(R) February 20, 2024 8:48 AM [facility] 02-20-2024 Note HNO ID: [id number] Author: ROX ROSENBERG APRN.PANEL EDGE SEALER Service: ? Author Type: Nurse Practitioner Type: Progress Notes Filed: 02/20/2024 09:04 Note Text: Subjective HPI Nontoxic-appearing female presents urgent care chief complaint cough body aches chills fever. Duration of symptoms 2 days. Associated symptoms listed above. OTC medication use none. 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 Past medical history prescription medications allergies reviewed. Denies chance of . .Patient presents with: Cough: Fever, chills, body aches, chest congestion x 2 days PAST MEDICAL HISTORY Diagnosis Date Anal fistula Anxiety Internal and external ulcerated hemorrhoids 10/17/2016 PAST SURGICAL HISTORY Procedure Laterality Date DELIVERY AND CARE ONL 10/13/10 DELIVERY+ CARE 2008 SIGMOIDOSCOPY FLX DX W/COLLJ SPEC BR/WA IF PFRMD 10/23/2013 Sigmoidoscopy, flexible SURG TX ANAL FISTULA SUBQ 10/30/2016 ALLERGIES Patient has no known allergies. MEDICATIONS psyllium husk (METAMUCIL) 3.4 gram/5.4 gram powd Take 1 Dose by mouth once daily. (Patient not taking: Reported on 02/20/2024) FAMILY HISTORY Problem Relation Age of Onset Heart Mother racing heart requiring Diabetes Father Cancer Father 60 colon cancer, post liver transplant other (liver transplant) Father disease(PSC) has returned other (Colitis) Father ileostomy No Known Problems Brother No Known Problems Brother Heart Maternal Grandmother Cancer Maternal Grandmother uterine Alzheimer's Disease Maternal Grandfather Cancer Paternal Grandmother brain Social History Tobacco Use Smoking status: Never Smokeless tobacco: Never Substance Use Topics Alcohol use: No Drug use: No BP 122/82 Pulse 106 Temp (!) 38.3 ?C (101 ?F) Resp 20 Wt 69.9 kg (154 lb 1.6 oz) LMP 05/12/2023 SpO2 98% BMI 24.19 kg/m? Hr 92 Review of Systems Constitutional: Positive for chills, fever and malaise/fatigue. HENT: Negative for congestion, ear discharge, ear pain, sinus pain and sore throat. Eyes: Negative for blurred vision, pain, discharge and redness. Respiratory: Positive for cough and sputum production. Negative for hemoptysis, shortness of breath, wheezing and stridor. Cardiovascular: Negative for chest pain. Gastrointestinal: Negative for abdominal pain, diarrhea, nausea and vomiting. Musculoskeletal: Positive for myalgias. Skin: Negative for itching and rash. Neurological: Negative for dizziness and headaches. Objective Physical Exam Constitutional: General: She is not in acute distress. Appearance: She is not diaphoretic. HENT: Head: Normocephalic. Jaw: No trismus, tenderness, swelling or pain on movement. Nose: Congestion present. Mouth/Throat: Mouth: Mucous membranes are moist. Pharynx: Oropharynx is clear. Uvula midline. No pharyngeal swelling, oropharyngeal exudate, posterior oropharyngeal erythema or uvula swelling. Eyes: Conjunctiva/sclera: Conjunctivae normal. Pupils: Pupils are equal, round, and reactive to light. Cardiovascular: Rate and Rhythm: Normal rate and regular rhythm. Heart sounds: Normal heart sounds. Pulmonary: Effort: Pulmonary effort is normal. No tachypnea, accessory muscle usage or respiratory distress. Breath sounds: No stridor. Wheezing present. No rhonchi or rales. Abdominal: General: There is no distension. Palpations: Abdomen is soft. Tenderness: There is no abdominal tenderness. There is no guarding or rebound. Musculoskeletal: Cervical back: Normal range of motion and neck supple. No edema, erythema, rigidity or tenderness. No pain with movement. Normal range of motion. Lymphadenopathy: Cervical: No cervical adenopathy. Skin: General: Skin is warm and dry. Neurological: Mental Status: She is alert and oriented to person, place, and time. ASSESSMENT/PLAN: 1. Acute cough - ICD9: 786.2, ICD10: R05.1 (primary diagnosis) - XR CHEST 2V FRONTAL/LAT 2. Community acquired pneumonia of right lung, unspecified part of lung - ICD9: 486, ICD10: J18.9 Diagnosed with right upper lobe pneumonia. Placed on doxycycline. Patient was educated on supportive therapies. Patient will follow up with primary care provider as needed. Patient was instructed to immediately proceed to emergency room for any new, worsening, or symptoms lasting longer than anticipated. The patient's clinical presentation is otherwise unremarkable at this time. Based on exam and clinical finding, the patient is stable for discharge. Plan of care was discussed with patient. Patient verbalizes understanding and agrees to plan of care. This note was generated using [employer] software. It may contain errors in wording, punctuation, or spelling. Rox Rosenberg APRN.[facility] 02-20-2024 History of Presen t illness Narrative Subjective HPI Nontoxic-appearing female presents urgent care chief complaint cough body aches chills fever. Duration of symptoms 2 days. Associated symptoms listed above. OTC medication use none. 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 Past medical history prescription medications allergies reviewed. Denies chance of . .Patient presents with: Cough: Fever, chills, body aches, chest congestion x 2 days PAST MEDICAL HISTORY Diagnosis Date Anal fistula Anxiety Internal and external ulcerated hemorrhoids 10/17/2016 PAST SURGICAL HISTORY Procedure Laterality Date DELIVERY & CARE ONL 10/13/10 DELIVERY+ CARE 2008 SIGMOIDOSCOPY FLX DX W/COLLJ SPEC BR/WA IF PFRMD 10/23/2013 Sigmoidoscopy, flexible SURG TX ANAL FISTULA SUBQ 10/30/2016 ALLERGIES Patient has no known allergies. MEDICATIONS psyllium husk (METAMUCIL) 3.4 gram/5.4 gram powd Take 1 Dose by mouth once daily. (Patient not taking: Reported on 02/20/2024) FAMILY HISTORY Problem Relation Age of Onset Heart Mother racing heart requiring Diabetes Father Cancer Father 60 colon cancer, post liver transplant other (liver transplant) Father disease(PSC) has returned other (Colitis) Father ileostomy No Known Problems Brother No Known Problems Brother Heart Maternal Grandmother Cancer Maternal Grandmother uterine Alzheimer's Disease Maternal Grandfather Cancer Paternal Grandmother brain Social History Tobacco Use Smoking status: Never Smokeless tobacco: Never Substance Use Topics Alcohol use: No Drug use: No BP 122/82 Pulse 106 Temp (!) 38.3 C (101 F) Resp 20 Wt 69.9 kg (154 lb 1.6 oz) LMP 05/12/2023 SpO2 98% BMI 24.19 kg/m Hr 92 Review of Systems Constitutional: Positive for chills, fever and malaise/fatigue. HENT: Negative for congestion, ear discharge, ear pain, sinus pain and sore throat. Eyes: Negative for blurred vision, pain, discharge and redness. Respiratory: Positive for cough and sputum production. Negative for hemoptysis, shortness of breath, wheezing and stridor. Cardiovascular: Negative for chest pain. Gastrointestinal: Negative for abdominal pain, diarrhea, nausea and vomiting. Musculoskeletal: Positive for myalgias. Skin: Negative for itching and rash. Neurological: Negative for dizziness and headaches. Objective Physical Exam Constitutional: General: She is not in acute distress. Appearance: She is not diaphoretic. HENT: Head: Normocephalic. Jaw: No trismus, tenderness, swelling or pain on movement. Nose: Congestion present. Mouth/Throat: Mouth: Mucous membranes are moist. Pharynx: Oropharynx is clear. Uvula midline. No pharyngeal swelling, oropharyngeal exudate, posterior oropharyngeal erythema or uvula swelling. Eyes: Conjunctiva/sclera: Conjunctivae normal. Pupils: Pupils are equal, round, and reactive to light. Cardiovascular: Rate and Rhythm: Normal rate and regular rhythm. Heart sounds: Normal heart sounds. Pulmonary: Effort: Pulmonary effort is normal. No tachypnea, accessory muscle usage or respiratory distress. Breath sounds: No stridor. Wheezing present. No rhonchi or rales. Abdominal: General: There is no distension. Palpations: Abdomen is soft. Tenderness: There is no abdominal tenderness. There is no guarding or rebound. Musculoskeletal: Cervical back: Normal range of motion and neck supple. No edema, erythema, rigidity or tenderness. No pain with movement. Normal range of motion. Lymphadenopathy: Cervical: No cervical adenopathy. Skin: General: Skin is warm and dry. Neurological: Mental Status: She is alert and oriented to person, place, and time. ASSESSMENT/PLAN: 1. Acute cough - ICD9: 786.2, ICD10: R05.1 (primary diagnosis) - XR CHEST 2V FRONTAL/LAT 2. Community acquired pneumonia of right lung, unspecified part of lung - ICD9: 486, ICD10: J18.9 Diagnosed with right upper lobe pneumonia. Placed on doxycycline. Patient was educated on supportive therapies. Patient will follow up with primary care provider as needed. Patient was instructed to immediately proceed to emergency room for any new, worsening, or symptoms lasting longer than anticipated. The patient's clinical presentation is otherwise unremarkable at this time. Based on exam and clinical finding, the patient is stable for discharge. Plan of care was discussed with patient. Patient verbalizes understanding and agrees to plan of care. This note was generated using [employer] software. It may contain errors in wording, punctuation, or spelling. Rox Rosenberg APRN.[employer] documented in this encounter [facility] 05-09-2022 History of Presen t illness Narrative This note was created using [employer] Subjective Melonie Rose is a 41 year old female. HISTORY Melonie Rose is a 41 year old lady here for yearly exam and follow up appointment. Reviewed father's PMH--copy from his AVS Had COVID in December--doing well and no long hauler's at this time.Cough took month's to resolve. Noted that left great toe with some shooting pain lateral great toe when tries to point foot. Numbness noted medial great toe. (doing adult ballet class) PAST MEDICAL HISTORY Diagnosis Date Anal fistula Anxiety Internal and external ulcerated hemorrhoids 10/17/2016 Current Outpatient Medications Medication Sig psyllium husk (METAMUCIL) 3.4 gram/5.4 gram powd Take 1 Dose by mouth once daily. norgestimate 0.25 mg-ethinyl estradiol 35 mcg (SPRINTEC) 0.25-35 mg-mcg per tablet Take 1 tablet by mouth once daily. (Patient not taking: Reported on 05/31/2021 ) hydrocortisone (ANUSOL-HC) 25 mg suppository 1 Suppository by RECTAL route twice daily as needed (hemorrhoids/rectal pain). (Patient not taking: Reported on 05/31/2021 ) No current facility-administered medications for this visit. ALLERGIES No Known Allergies FAMILY HISTORY Problem Relation Age of Onset Heart Mother racing heart requiring Diabetes Father Cancer Father 60 colon cancer, post liver transplant other (liver transplant) Father disease(PSC) has returned other (Colitis) Father ileostomy Heart Maternal Grandmother Cancer Maternal Grandmother uterine Alzheimer's Disease Maternal Grandfather Cancer Paternal Grandmother brain Social History Tobacco Use Smoking status: Never Smokeless tobacco: Never Substance Use Topics Alcohol use: No Drug use: No Review of Systems Objective BP 118/72 Pulse 75 Temp 36 C (96.8 F) Resp 18 Ht 170.5 cm (5' 7.13) Wt 68.9 kg (152 lb) LMP 04/16/2022 SpO2 99% BMI 23.72 kg/m Physical Exam Vitals reviewed. Constitutional: Appearance: Normal appearance. She is well-developed. HENT: Head: Normocephalic and atraumatic. Right Ear: External ear normal. Left Ear: External ear normal. Nose: Nose normal. Eyes: Conjunctiva/sclera: Conjunctivae normal. Neck: Thyroid: No thyromegaly. Cardiovascular: Rate and Rhythm: Normal rate and regular rhythm. Pulses: Normal pulses. Heart sounds: Normal heart sounds. No murmur heard. No friction rub. No gallop. Pulmonary: Effort: Pulmonary effort is normal. Breath sounds: Normal breath sounds. Abdominal: General: Bowel sounds are normal. There is no distension. Palpations: Abdomen is soft. There is no mass. Tenderness: There is no abdominal tenderness. Musculoskeletal: General: No deformity. Normal range of motion. Lymphadenopathy: Cervical: No cervical adenopathy. Skin: General: Skin is warm and dry. Coloration: Skin is not jaundiced or pale. Findings: No rash. Neurological: General: No focal deficit present. Mental Status: She is alert and oriented to person, place, and time. Cranial Nerves: No cranial nerve deficit. Sensory: No sensory deficit. Motor: No abnormal muscle tone. Coordination: Coordination normal. Deep Tendon Reflexes: Reflexes normal. Psychiatric: Attention and Perception: Attention and perception normal. Mood and Affect: Mood normal. Speech: Speech normal. Behavior: Behavior normal. Thought Content: Thought content normal. Cognition and Memory: Cognition and memory normal. Judgment: Judgment normal. Assessment and Plan ASSESSMENT/PLAN: 1. Routine medical exam - ICD9: V70.0, ICD10: Z00.00 (primary diagnosis) - Counseled on healthy diet and regular exercise - Calcium intake with supplements or by diet of 1000 mg/day for under 50, 6983-8545 mg/day for 50+ - Follow up for annual exam in one year - COMP METABOLIC PANEL - CBC - LIPID PANEL BASIC 2. Pain of toe of left foot - ICD9: 729.5, ICD10: M79.675 Further evaluation and treatment as indicated. 3. Encounter for immunization - ICD9: V03.89, ICD10: Z23 - TDAP VACCINE AGE 7+ IM--will schedule for later 4. Screening, lipid - ICD9: V77.91, ICD10: Z13.220 Lipids ordered 5. Encounter for screening for diabetes mellitus - ICD9: V77.1, ICD10: Z13.1 - COMP METABOLIC PANEL Yasmin Montenegro MD documented in this encounter [facility] 05-31-2021 History of Presen t illness Narrative Radiology Service Progress Note PATIENT NAME: Melonie Rose DATE OF SERVICE: May 31, 2021 TIME: 8:25 AM PATIENT IDENTITY VERIFICATION COMPLETED USING TWO (2) IDENTIFIERS: Name and Date of confirmed by patient verbally. FALL SCREENING: Has the patient had 2 falls in the last year or 1 fall with injury or currently using an Ambulatory Assistive Device (Walker, Cane, Wheelchair, Crutches, etc.)? No PATIENT GENDER DATA: Female. status: : No status: NO. PATIENT RELEVANT IMPLANT DATA REVIEWED: Yes RADIOLOGY DEPARTMENT: General X-ray: Exam(s) Completed: Spine X-Ray(s): Lumbar AP / LAT / L5-S1 PERIPHERAL IV DATA: Not applicable SIGNED BY: RT Collette(R) May 31, 2021 8:25 AM documented in this encounter [facility] 07-14-2013 History of Past i llness Narrative Problem Noted Date Resolved Date BRBPR (bright red blood per rectum) 07/14/2013 10/23/2014 Surveillance of previously prescribed contracept ottoniel pill 11/27/2011 12/09/2012 Anal or rectal pain 08/22/2011 11/27/2011 Rectal bleeding 08/22/2011 11/27/2011 Previous delivery, antepartum condition or complication 04/20/2010 11/24/2010 Threatened , antepartum 02/24/2010 11/24/2010 Unspecified disorder of female genital organs 11/27/2011 Incomplete spontaneous abort ion without mention of complication 12/09/2009 05/24/2010 Supervision of normal first 12/17/2007 12/09/2009 documented as of this encounter (statuses as of 02/25/2022) [facility] History of Past illness Narrative* Problem Noted Date Resolved Date BRBPR (bright red blood per rectum) 07/14/2013 10/23/2014 Surveillance of previously prescribed contracept ottoniel pill 11/27/2011 12/09/2012 Anal or rectal pain 08/22/2011 11/27/2011 Rectal bleeding 08/22/2011 11/27/2011 Previous delivery, antepartum condition or complication 04/20/2010 11/24/2010 Threatened , antepartum 02/24/2010 11/24/2010 Unspecified disorder of female genital organs 11/27/2011 Incomplete spontaneous abort ion without mention of complication 12/09/2009 05/24/2010 Supervision of normal first 12/17/2007 12/09/2009 documented as of this encounter (statuses as of 06/05/2022) [facility] History of Past illness Narrative* Problem Noted Date Diagnosed Date Resolved Date BRBPR (bright red blood per rectum) 07/14/2013 10/23/2014 Surveillance of previously p rescribed contraceptive pill 11/27/2011 12/09/2012 Anal or rectal pain 08/22/2011 11/27/19 12 Rectal bleeding 08/22/2011 11/27/2011 Previous delivery, antepartum condition or complication 04/20/2010 11/24/2010 Threatened , antepartum 02/24/2010 11/24/2010 Unspecified disorder of female genital organs 12/23/19 10 11/27/2011 Incomplete spontaneous abort ion without mention of complication 12/09/2009 05/24/2010 Supervision of normal first 12/17/2007 12/09/2009 documented as of this encounter (statuses as of 02/15/2023) [facility] noteNo assessment information availableWOhio [facility] Work Phone: evaluation note* Diagnosis Routine medical exam- Primary Routine general medical examination at a health care facility Pain of toe of left foot Pain in limb Encounter for immunization Need for other specified prophylactic vaccination against single bacterial disease Screening, lipid Screening for lipoid disorders Encounter for screening for diabetes mellitus Screening for diabetes mellitus [facility] [place] [facility]* Diagnosis Onset Date Resolution Status Encounter for routine gynecological examination noneactive [facility] Work Phone: evaluation note* Diagnosis Onset Date Resolution Status Family history of breast cancer acute Lump of axillary tail of left breast acute [facility] Work Phone: evaluation note* Diagnosis Acute midline low back pain without sciatica documented in this encounter [facility] note* Diagnosis Acute cough- Primary Community acquired pneumonia of right lung, unspecified part of lung Acute cough [facility] [place] [facility]* Diagnosis Acute cough [facility] [place] [facility]* Diagnosis Pneumonia of right upper lobe due to infectious organism- Primary Pneumonia of right upper lobe due to infectious organism documented in this encounter [facility] note* Diagnosis Pneumonia of right upper lobe due to infectious organism documented in this encounter [facility] note* Diagnosis Routine medical exam- Primary Routine general medical examination at a health care facility Skin lesion of right upper extremity ASCUS of cervix with negative high risk HPV Episodic paroxysmal hemicrania, 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 History of back strain Personal history of other musculoskeletal disorders Screening for depression Encounter for screening examination for other mental health and behavioral disorders documented [facility] [place] [facility]* Diagnosis Encounter for screening mammogram for breast cancer documented in this encounter [facility] note* Diagnosis Onset Date Resolution Status Admit Date Encounter for routine gynecological examination noneactive November 052024 1:02pm [place] [employer] Work Phone: Reason for referral (narrative)* Diagnostic Procedure Only (Routine) - Closed Specialty Diagnoses / Procedures Referred By Contac t Referred To Contact XR IMAGING Diagnoses Acute midline low back pain without sciatica Procedures XR LUMBAR GENERAL 3V AP/LAT/L5-S1 RADEX SPINE LUMBOSACRAL 2/3 VIEWS aLtonia Stauffer, DIRECTOR MARKETING.TRAINING SYSTEMS OFFICER [address] [place] [address] [place] [address] Referral ID Status Reason Start Date Expiration Date V isits Requested Visits Authorized [id number] Closed Auto-Generate d Referral 05/31/2021 06/30/2022 1 1 [facility]narrative)No reason for referral information availableT[place] [facility] Work Phone: [employer] for visit Narrative* Diagnostic Procedure Only (Routine) - Closed Specialty Diagnoses / Procedures Referred By Contac t Referred To Contact XR IMAGING Diagnoses Acute midline low back pain without sciatica Procedures XR LUMBAR GENERAL 3V AP/LAT/L5-S1 RADEX SPINE LUMBOSACRAL 2/3 VIEWS Latonia Stauffer, DIRECTOR MARKETING.TRAINING SYSTEMS OFFICER [address] [place] [address] [place] [address] Referral ID Status Reason Start Date Expiration Date V isits Requested Visits Authorized [id number] Closed Auto-Generate d Referral 05/31/2021 06/30/2022 1 1 [facility] Summary Purpose Family History Relationship Condition Age at Onset Recorded Date/T nikki mother Cardiac disease Unknown father Malignant neoplasm Unknown Diabetes mellitus Unknown Ulcerative colitis Unknown Complication of transplanted liver Unknow n Advance Directives Advance Directive Response Recorded Date/ Time Living Will Yes October 26, 2016 8:13am Power of Manager Fitness Yes October 26 8:13am Chief Complaint and Reason for Visit Chief Complaint SCREENING 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) Chief Complaint 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) SCREENING Reason for Visit Encounter for routin e gynecological examination Chief Complaint Left axilla lump LUMP IN LEFT BREAST Reason for Visit Family history of br east cancer Lump of axillary tail of left breast Chief Complaint Admit Date screening for breast cancer November 25 12:33pm 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) November 25, 2024 1:02 pm Reason for Visit Admit Date Encounter for routine gynecological exam ination November 25, 2024 1:02pm Additional Source Comments INFORMATION SOURCE (unrecogn ized section and content) DATE CREATED AUTHOR 12/15/2019 Samy Min [facility] DATE CREATED AUTHOR AUTHOR'S ORGANIZ ATION 11/09/2024 [facility] DATE CREATED AUTHOR AUTHOR'S ORGANIZ ATION 11/24/2024 [facility] Goals (unrecognized section and content) Goals may be documented in a n alternate sectionGoals may be documented in an alternate sectionGoals may be documented in an alternate sectionGoals may be documented in an alternate section Source Comments (unrecognize d section and content) In the event this informatio n is protected by the Federal Confidentiality of Alcohol and Drug Abuse Patient Records regulations: The Federal rules restrict any use of the information to criminally investigate or prosecute any alcohol or drug abuse patient.[facility] the event this information is protected by the Federal Confidentiality of Alcohol and Drug Abuse Patient Records regulations: The Federal rules restrict any use of the information to criminally investigate or prosecute any alcohol or drug abuse patient.[facility] Hospital[facility] the event this information is protected by the Federal Confidentiality of Alcohol and Drug Abuse Patient Records regulations: The Federal rules restrict any use of the information to criminally investigate or prosecute any alcohol or drug abuse patient.[facility] Hospital[facility] the event this information is protected by the Federal Confidentiality of Alcohol and Drug Abuse Patient Records regulations: The Federal rules restrict any use of the information to criminally investigate or prosecute any alcohol or drug abuse patient.[facility] Hospital[facility] the event this information is protected by the Federal Confidentiality of Alcohol and Drug Abuse Patient Records regulations: The Federal rules restrict any use of the information to criminally investigate or prosecute any alcohol or drug abuse patient.[facility] Hospital[facility] the event this information is protected by the Federal Confidentiality of Alcohol and Drug Abuse Patient Records regulations: The Federal rules restrict any use of the information to criminally investigate or prosecute any alcohol or drug abuse patient.[facility] Hospital[facility] the event this information is protected by the Federal Confidentiality of Alcohol and Drug Abuse Patient Records regulations: The Federal rules restrict any use of the information to criminally investigate or prosecute any alcohol or drug abuse patient.[facility] Hospital[facility] the event this information is protected by the Federal Confidentiality of Alcohol and Drug Abuse Patient Records regulations: The Federal rules restrict any use of the information to criminally investigate or prosecute any alcohol or drug abuse patient.[facility] HospitalIn the event this information is protected by the Federal Confidentiality of Alcohol and Drug Abuse Patient Records regulations: The Federal rules restrict any use of the information to criminally investigate or prosecute any alcohol or drug abuse patient.[facility] Hospital[facility] the event this information is protected by the Federal Confidentiality of Alcohol and Drug Abuse Patient Records regulations: The Federal rules restrict any use of the information to criminally investigate or prosecute any alcohol or drug abuse patient.[facility] HospitalIn the event this information is protected by the Federal Confidentiality of Alcohol and Drug Abuse Patient Records regulations: The Federal rules restrict any use of the information to criminally investigate or prosecute any alcohol or drug abuse patient.[facility] Hospital[facility] the event this information is protected by the Federal Confidentiality of Alcohol and Drug Abuse Patient Records regulations: The Federal rules restrict any use of the information to criminally investigate or prosecute any alcohol or drug abuse patient.[facility] Hospital[facility] the event this information is protected by the Federal Confidentiality of Alcohol and Drug Abuse Patient Records regulations: The Federal rules restrict any use of the information to criminally investigate or prosecute any alcohol or drug abuse patient.[facility] Care Teams (unrecognized sec tion and content) Grain Drier Relationship Specialty Start Date End Date Yasmin Montenegro MD [address] [place], [place] [id number] PCP - General 10/07/04 Grain Drier Relationship Specialty Start Date End Date Yasmin Montenegro MD [address] [place], [place] [id number] PCP - General 10/07/04 Team Status: Active Member Role Status Dates Dr. Yasmin Montenegro MD Family Provider Active Dr. Yasmin Montenegro MD Primary Care Provider Active Team Status: Inactive Member Role Status Dates Dr. Yasmin Montenegro MD Primary Care Provider, Referr ing Provider Active Soraida Tam TRADITIONAL CHINESE HERBALIST, TRADITIONAL CHINESE HERBALIST-C Attending Provider Active Team Status: Inactive Member Role Status Dates Dr. Yasmin Montenegro MD Primary Care Provider Active Soraida Tam TRADITIONAL CHINESE HERBALIST, TRADITIONAL CHINESE HERBALIST-C Attending Provider, Referring Provider Active Grain Drier Relationship Specialty Start Date End Date Yasmin Montenegro MD [address] [place] [address] PCP - General 10/07/04 Team Status: Inactive Member Role Status Dates Dr. Yasmin Montenegro MD Primary Care Provider Active Soraida Tam TRADITIONAL CHINESE HERBALIST, TRADITIONAL CHINESE HERBALIST-C Attending Provider Active Grain Drier Relationship Specialty Start Date End Date Yasmin Montenegro MD [address] [place] [address] PCP - General 10/07/04 Grain Drier Relationship Specialty Start Date End Date Yasmin Montenegro MD [address] [place] [address] PCP - General 10/07/04 Grain Drier Relationship Specialty Start Date End Date Yasmin Montenegro MD [address] [place] [address] PCP - General 10/07/04 Grain Drier Relationship Specialty Start Date End Date Yasmin Montenegro MD [address] [place] [address] PCP - General 10/07/04 Grain Drier Relationship Specialty Start Date End Date Yasmin Montenegro MD [address] [place] [address] PCP - General 10/07/04 Grain Drier Relationship Specialty Start Date End Date Yasmin Montenegro MD [address] [place] [address] PCP - General 10/07/04 Grain Drier Relationship Specialty Start Date End Date Yasmin Montenegro MD [address] [facility], [place] [id number] PCP - General 10/07/04 Latonia Stauffer, DIRECTOR MARKETING.TRAINING SYSTEMS OFFICER [address] [place] [address] Patent Searcher Internal Medicine 04/14/24 Daniella Espinal, DIRECTOR MARKETING.PANEL EDGE SEALER [address] [place] [address] Patent Searcher Internal Medicine 04/14/24 Grain Drier Relationship Specialty Start Date End Date Yasmin Montenegro MD [address] [place] [address] PCP - General 10/07/04 Daniella Espinal, DIRECTOR MARKETING.PANEL EDGE SEALER [address] [place] [address] Patent Searcher Internal Medicine 07/29/24 Latonia Stauffer, DIRECTOR MARKETING.TRAINING SYSTEMS OFFICER [address] [place] [address] Patent Searcher Internal Medicine 09/24/24 Team Status: Active Member Role/Relationship Status Dates Dr. Yasmin Montenegro MD Primary Care Provider Active Team Status: Active Member Role/Relationship Status Dates Dr. Yasmin Montenegro MD Primary Care Provider Active Start: November 25, 2024 Soraida Tam TRADITIONAL CHINESE HERBALIST, TRADITIONAL CHINESE HERBALIST-C Attending Provider Active Start: November 25, 2024 Soraida Tam TRADITIONAL CHINESE HERBALIST, TRADITIONAL CHINESE HERBALIST-C Referring Provider Active Start: November 25, 2024 Team Status: Inactive Member Role/Relationship Status Dates Dr. Yasmin Montenegro MD Primary Care Provider Active Start: November 25, 2024 End: November 25, 2024 Dr. Yasmin Montenegro MD Referring Provider Active Start: November 25, 2024 End: November 25, 2024 Soraida Tam TRADITIONAL CHINESE HERBALIST, TRADITIONAL CHINESE HERBALIST-C Attending Provider Active Start: November 25, 2024 End: November 25, 2024 Reason for Visit (unrecogniz ed section and content) Reason Comments Physical Reason Comments Cough Fever, chills, body aches, chest congestion x 2 days Reason Comments Results Reason Comments Follow Up Reason Comments Yearly Exam FOR RECORDS PERTAINING TO PATIENTS WHO ARE OR HAVE BEEN ENROLLED IN A CHEMICAL DEPENDENCY/SUBSTANCEABUSE PROGRAM, SOME INFORMATION MAY BE OMITTED. This clinical summary was aggregated from multiple sources. Caution should be exercised in using it in the provision of clinical care. This summary normalizes information from multiple sources, and as a consequence, information in this document may materially change the coding, format and clinical context of patient data. In addition, data may be omitted in some cases. CLINICAL DECISIONS SHOULD BE BASED ON THE PRIMARY CLINICAL RECORDS. [facility] [employer] [facility]. provides no warranty or guarantee of the accuracy or completeness of information in this document.
== END | disposition home or self-care (01) ==
LOC: OPBI 12:40
PROVIDERS: PCP Internal Medicine; Referring Provider Nurse Practitioner Women's Health; Visit Provider Nurse Practitioner Women's Health
DX: Z12.31 Encounter for screening mammogram for malignant neoplasm of breast (principal)
CPT/HCPCS: 77063; 77067